=== PATIENT | male | born 1960 | race Caucasian/White ===

== ENCOUNTER 2020-09-23 13:55 | Inpatient (IN) | payer OTHER, SELFPAY ==
[2020-09-23] VITALS (25 sets, daily range): BP systolic 77–156; BP diastolic 67–129; PULSE 77–149; RESP 14–24; TEMP 36.1–36.9; O2SAT 90–98; BMI 27.6; BMI 31.4
--- NOTE | 2020-09-23 06:07 | RAD_ITS ---
STUDY: X-RAY - ABDOMEN/PELVIS REASON FOR EXAM: Male, 60 years old. Abdominal pain TECHNIQUE: Single AP view of the abdomen / pelvis. COMPARISON: None. FINDINGS: Normal visualized lung bases. There are mildly prominent loops of air-filled small bowel. There is no demonstrated free abdominal air. The visualized liver, spleen and kidneys are grossly normal in size and morphology. Normal soft tissue structures. Normal visualized osseous structures. RAD/Abd Decub and/or Erect(Portabl IMPRESSION: Mildly prominent loops of air-filled small bowel. Electronically Signed: Michael Rosen MD at 17:06 EST Tel , Service support ,
--- NOTE | 2020-09-23 14:42 | RAD_ITS ---
STUDY: X-RAY CHEST REASON FOR EXAM: Male, 60 years old. Cough TECHNIQUE: Single AP portable view of the chest. COMPARISON: None. FINDINGS: There are hazy airspace opacities in the bilateral upper lobes and right lung base. There is no demonstrated pleural abnormality. Normal size heart. Normal mediastinum and karlie. Normal visualized pulmonary arteries. Normal visualized aortic arch and descending thoracic aorta. Normal visualized thoracic spine. Normal visualized ribs, clavicles, and shoulders. There is no demonstrated abnormality of the visualized soft tissue structures of the upper abdomen. RAD/Chest 1 View (Portable) IMPRESSION: Hazy airspace opacities in the bilateral upper lobes and right lung base in keeping with pneumonia. Electronically Signed: Michael Rosen MD at 15:26 EST Tel , Service support ,
--- NOTE | 2020-09-23 14:42 | EKG12_ITS ---
Test Reason : TACHY Blood Pressure : / mmHG Vent. Rate : 152 BPM Atrial Rate : 170 BPM P-R Int : 000 ms QRS Dur : 082 ms QT Int : 288 ms P-R-T Axes : 000 053 266 degrees QTc Int : 457 ms Atrial fibrillation with rapid ventricular response Nonspecific ST and T wave abnormality Abnormal ECG Confirmed by LEANDRO BAHENA, ROBERTO ([id number]), desk editor LIAM BOWSER ([id number]) on 09/26/2020 10:58:24 A M Referred By: MARCUS Confirmed By:CLAUDIA REEVES MD
[2020-09-23 14:51] LABS: Absolute Lymphocyte Count 0.96 X10^3/uL (0.83-4.51); Absolute Neutrophil Count 7.2 X10^3/uL (2.0-7.7); Basophil# 0.03 X10^3/uL; Basophil% 0.3 % (0-1); Eosinophil# 0.02 X10^3/uL; Eosinophils% 0.2 % (0-5); Hematocrit 49.6 % (40-54); Hemoglobin 16.6 g/dL (13.0-16.5); Lymphocyte # 0.96 X10^3/ul (4.0); Lymphocyte % 10.8 % (19-41); Mean Corp Hgb Conc 33.5 g/dL (32-36); Mean Corpuscular Hgb 32.1 pg (27.0-32.0); Mean Corpuscular Volume 95.9 fL (80-94); Mean Platelet Vol. 11.7 fl (6.2-12.0); Monocyte# 0.66 X10^3/uL; Monocyte% 7.4 % (0-10); NRBC Flagged by Analyzer 0 % (0-5); Neutrophil # 7.23 X10^3/uL (2.7-7.7); Neutrophil % 81.1 % (47-70); Platelet Count 231 K/mm3 (150-450); RBC Distribution Width CV 12.9 % (11.6-14.6); RBC Distribution Width SD 45.2 fl (35.1-43.9); Red Blood Count 5.17 M/mm3 (4.6-6.2); White Blood Count 8.9 K/mm3 (4.4-11.0)
[2020-09-23 14:55] LABS: International Normalized Ratio 1.1; Prothrombin Time (Protime)PT. 13.8 SECONDS (11.7-14.9)
[2020-09-23 14:56] LABS: Partial Thromboplast Time 25.2 Seconds (24.1-36.2)
[2020-09-23] MEDS: 0.9% Normal Saline 1,000 ML 1000 ML IV (14:59)
[2020-09-23] MEDS: dilTIAZem 25 MG/5 ML Vial IV BOLUS (15:00)
[2020-09-23 15:02] LABS: AST(SGOT) 123 U/L (15-37); Alanine Aminotransfer ALT/SGPT 260 U/L (16-61); Albumin, Serum 3.5 g/dL (3.2-5.0); Alkaline Phosphatase 112 U/L (45-117); Anion Gap 7 (5-15); BUN 15 mg/dL (7-18); BUN/Creat Ratio 11.1 RATIO (10-20); Calcium,Total 8.9 mg/dL (8.5-10.1); Chloride 106 mmol/L (98-107); Creatinine, Serum 1.35 mg/dL (0.70-1.30); EST Glomerular Filtration Rate 58 mL/min (>60); Est Glom Filt Rate - Afr Amer 70 mL/min (>60); Estimated Creatinine Clearance 73.23 ml/min; Globulin 3.4 g/dL (2.2-4.2); Glucose 120 mg/dL (74-106); Potassium 4.6 mmol/L (3.5-5.1); Protein, Total 6.9 g/dL (6.4-8.2); Sodium Level 137 mmol/L (136-145)
--- NOTE | 2020-09-23 15:31 | HP.PCM_ITS ---
Problem List (1) Sepsis Status: Acute Qualifiers: Sepsis type: sepsis due to unspecified organism Sepsis acute organ dysfunction status: unspecified Qualified Code(s): A41.9 - Sepsis, unspecified organism (2) Elevated BP without diagnosis of hypertension Status: Acute (3) Elevated LFTs Status: Acute (4) Acute renal insufficiency Status: Acute (5) Atrial fibrillation with rapid ventricular response Status: Acute (6) Pneumonia Status: Acute Qualifiers: Pneumonia type: due to unspecified organism Laterality: bilateral Lung location: unspecified part of lung Qualified Code(s): J18.9 - Pneumonia, unspecified organism History of Present Illness Date of Admission: 09/23/20 Chief Complaint: Dyspnea, cough, recent URI sxs, now racing heart, fatigue. The patient is a 60 y/o M w/ denied medical history on no medications who presents to the [facility] ED on 09/23/20 with history of onset in late July generalized fatigue, malaise, frontal occasional headaches, body aches, cough, dyspnea as well as alteration to his sense of taste however he reports that his taste only changed following taking a Z-Benigno with noted virtual visit 09/13/2020 given his ongoing symptoms without improvement with PCP administration at that time of Z-Benigno with no improvement and immediate onset evening following dose taken earlier in the day of significantly racing heart and dyspnea, worse with exertion with elevated blood pressures prompting ED evaluation. His denies having any symptoms and has felt well. Patient is very active normally and has had no health issues. Work-up in the ED included T 97, heart rate initially 77 however increased to 140, BP 156/117, respiratory rate 20, 97% on room air, CBC with WBC 8.9, hemoglobin 16.6, platelet 231 without marked shift, unremarkable coags, CMP with BUN/creatinine 15/1.35, glucose 120, total bilirubin 1.80, AST/ALT 123/260, alk phos 112, troponin less than 0.015, rapid Covid antigen negative, chest x-ray with consolidative BL UL infiltrates, abdominal plain film with mildly prominent loops of air-filled small bowel, EKG with atrial fibrillation with RVR. In the ED patient administered normal saline and Cardizem 25 mg IV bolus x1. In the ED patient also given Levaquin. Covid PCR pending upon evaluation of patient. Past Medical History Allergies No Known Allergies Allergy (Verified 09/23/20 14:01) Home Medications: Ambulatory Orders Medication Instructions Recorded Trazodone HCl 50 mg PO QHS 09/23/20 Surgical History: no surgical history Psychiatric History: No pertinent psych hx Lives: Spouse/ Significant Other Smoking Status: Former smoker - Patient smokes approximately 1 pack/day cigarette tobacco usage from age [age]. Tobacco Use: Non-smoker Alcohol: Occasional Drugs: None - *Family History Maternal History Items: Hypertension, - - Mother with a history of DVTs. Paternal History Items: Hypertension Review of Systems Constitutional: Reports: Anorexia, Malaise, Weakness, Fatigue. Denies: Chills, Fever, Weight Change HEENT: Reports: Head Aches, - - Altered taste.. Denies: Sinus Congestion, Sinus Drainage Cardiovascular: Reports: Chest Pain. Denies: Palpitations Respiratory: Reports: Cough, Pleuritic Pain, Shortness of Breath, Shortness of breath upon exertion. Denies: Shortness of breath at rest, Sputum production, Wheezing Gastrointestinal: Reports: Abdominal Pain, Diarrhea, Nausea, Vomiting Genitourinary: Denies: Dysuria Musculoskeletal: Reports: Joint Pain, Muscle pain. Denies: Joint Tenderness Skin: Denies: Rash, Wounds Neurological: Denies: Numbness, Tingling, Focal weakness Psychiatric: Denies: Anxiety, Depression, Homicidal Ideations, Suicidal Ideations Hematologic/ Lymphatic: Denies: Easy Bruising, Easy Bleeding VTE Information - Inpt Only VTE Present on Admission: No VTE Mechan Device Prophylaxis: SCD's VTE Pharm Prophylaxis ordered?: Yes Patient Problems: Active and Suspected Problems Atrial fibrillation with rapid ventricular response (Acute) Pneumonia (Acute) Sepsis (Acute) Elevated BP without diagnosis of hypertension (Acute) Elevated LFTs (Acute) Acute renal insufficiency (Acute) Subjective: Patient seated upright in the ED bed, fatigued and ill-appearing, no acute distress noted. Objective: Physical Examination: General: awake, alert, oriented x 3 and cooperative, seated upright in the ED bed in no apparent distress, fatigued and ill-appearing. Skin: normal color, turgor, no icterus, cyanosis. HEENT: AT/NC, EOMI, PERRLA, dry MM, no carotid bruits or JVD noted. Lungs: Diminished breath sounds, greater bases, moderate effort, no rales, ronchi or wheezing. Heart: Irregular irregular; no gallop, rub audible. Abdomen: soft, NTTP, mildly distended, moderately hypoactive BS, no HSM. Extremities: no cyanosis, clubbing, or edema. Neurological: patient awake, alert, oriented as noted; cognitive function intact; pupils equally reactive to light and accomodation; cranial nerves II-XII grossly normal, moving all 4 extremities, no focal deficits, strength moderately to severely global decrease secondary to acute presentation. Psychiatric: affect appears fatigued, ill-appearing, no acute evidence of depressive or anxiety feelings. - Physical Exam Vitals/I&O's: Vital Signs Temp Pulse Resp BP Pulse Ox 97 F L 140 H 20 H 145/111 H 95 09/23/20 13:57 09/23/20 15:00 09/23/20 15:00 09/23/20 15:00 09/23/20 15:00 Oxygen Delivery Method Room Air Weight: 227 lb 1.218 oz Body Mass Index (BMI) 27.6 Microbiology Past 72 Hours 09/23/20 14:48 Mucosa - Nose SARS-CoV-2 Antigen (Rapid) - Final Laboratory Results 09/23/20 14:13: WBC 8.9, RBC 5.17, Hgb 16.6 H, Hct 49.6, MCV 95.9 H, MCH 32.1 H, MCHC 33.5, RDW Std Deviation 45.2 H, RDW Coeff of Thai 12.9, Plt Count 231, MPV 11.7, Immature Gran % (Auto) 0.200, Neut % (Auto) 81.1 H, Lymph % (Auto) 10.8 L, Petroleum % (Auto) 7.4, Eos % (Auto) 0.2, Baso % (Auto) 0.3, Absolute Neuts (auto) 7.2, Absolute Lymphs (auto) 0.96, Nucleated RBC % 0 09/23/20 14:13: PT 13.8, INR 1.1, APTT 25.2 09/23/20 14:13: Sodium 137, Potassium 4.6, Chloride 106, Carbon Dioxide 24.0, Anion Gap 7, BUN 15, Creatinine 1.35 H, Estim Creat Clear Calc 73.23, Est GFR (MDRD) Af Amer 70, Est GFR (MDRD) Non-Af 58 L, BUN/Creatinine Ratio 11.1, Glucose 120 H, Calcium 8.9, Total Bilirubin 1.80 H, AST 123 H, ALT 260 H, Alkaline Phosphatase 112, Troponin I < 0.015, Total Protein 6.9, Albumin 3.5, Globulin 3.4, Albumin/Globulin Ratio 1.0 Current Medications Sodium Chloride () 1,000 mls @ 1,000 mls/hr IV .Q1H ONE Stop: 09/23/20 15:41 Last Admin: 09/23/20 14:59 Dose: 1,000 mls/hr Documented by: Levofloxacin (Levaquin Iv) 750 mg in 150 mls @ 100 mls/hr IV X1 ONE Stop: 09/23/20 16:58 Assessment/Plan All Active Problems Atrial fibrillation with rapid ventricular response (Acute) Pneumonia (Acute) Sepsis (Acute) Elevated BP without diagnosis of hypertension (Acute) Elevated LFTs (Acute) Acute renal insufficiency (Acute) The patient is a 60 y/o M w/ denied medical history on no medications who presents to the [facility] ED on 09/23/20 with history of onset in late July generalized fatigue, malaise, frontal occasional headaches, body aches, cough, dyspnea as well as alteration to his sense of taste however he reports that his taste only changed following taking a Z-Benigno with noted virtual visit 09/13/2020 given his ongoing symptoms without improvement with PCP administration at that time of Z-Benigno with no improvement and immediate onset evening following dose taken earlier in the day of significantly racing heart and dyspnea, worse with exertion with elevated blood pressures prompting ED evaluation. 1. New onset, Paroxsymal atrial fibrillation: EKG in ED w/ atrial fibrillation w/ RVR. Patient administered cardizem bolus in ED. Will admit to PCU, maintain on telemetry, obtain cardiac enzyme serial set, obtain magnesium level, obtain ECHO, obtain TSH level. Given presentation history will also obtain D-dimer and if elevated will obtain CTPA. Until further evaluation and assessment will initiate therapeutic lovenox. Will continue on cardizem drip with plan for oral transition after 24 hours if appropriate. 2. Acute Sepsis secondary to (Suspect Prior Acute Viral Syndrome COVID-19 (July) now with Superimposed) Community Acquired BL Pneumonia: Will maintain on oxygen with wean as tolerated to home oxygen supplementation, continue ATC duonebs, PRN albuterol, maintained on IV Levaquin, HOB, IS parameters w/ pending sputum cultures and urine antigens. PCR COVID pending per ED and as long as negative continue planned PCU admission. Given presentation, especially with PAF new onset healthy previously will obtain COVID panel work-up including D-dimer, procalcitonin, CRP, CPK, Ferritin, LDH, trop and BNP. If D-dimer elevated will obtain CTPA additionally. Given atypical presentation and ongoing symptoms will request ID input also. 3. Elevated BP without hypertensive diagnosis: Given presentation as noted usage of Cardizem and will necessitate oral regimen addition, continue to m onitor blood pressures and may need additional regimen if appropriate, given IV hydralazine. 4. Acute kidney injury versus Acute Renal Insufficiency versus CKD stage III: Secondary to acute presentation #1, #2. Admission BUN/Cr 15/1.35, unclear prior baseline but no reported health history is including no renal disease previously, judiciously hydrating given acute presentation, repeat CMP in AM. 5. Elevated bilirubin, AST/ALT: Possibly related to #2 especially previously Covid positive now with superimposed bacterial pneumonia, will obtain liver/gallbladder ultrasound, repeat CMP in AM. 6. DVT prophylaxis: SCDs, Lovenox. 7. CODE status: Patient and his was present do not have healthcare power of civil attorney nor living will set up. Noted the if they are interested they may request information from case management/social work. Discussed CODE status at length including difference between FULL code, DNR-CCA and DNR-CC status. Following discussions about the differences in these status, requested Full Code status. Advanced Care Planning Face to Face Time: 16 minutes. Inpatient E&M: 84303 Init Hosp L3 Procedures: 47000 Advncd Care Plan 30 Min
[2020-09-23] MEDS: levoFLOXacin IV 750 MG/150 ML BAG 100 MG IV (16:31)
--- NOTE | 2020-09-23 16:40 | ED.VISSUMM ---
- ER Visit Summary Date of Service: 09/23/20 Chief Complaint: Shortness of breath and palpitations History of Present Illness: The patient is a 60 M who presents with shortness of breath that has been constant for the past 6 weeks. Patient states he has been having some increasing fatigue. Patient admits to a cough. Patient denies any sputum. Patient denies any fevers or chills. Patient does admit to some chest pain and palpitations that began 10 days ago. Patient was given a prescription for Zithromax at 10 days ago and he took that from 09/13/2020 through 09/17/2020. Patient states this did not improve any of his symptoms. Patient states he noted his heart beating faster after taking this. Patient also admits to some abdominal pain and bloating. Patient admits to some nausea and vomiting. Patient states he has been unable to keep anything down. Patient denies any past medical history. Physical Examination: Vital signs are stable except for an elevated blood pressure 156/117. Patient is afebrile. Patient is in no acute distress. Oral mucosa is pink and moist. Neck is supple. Trachea is midline. There is no JVD noted. Heart was irregularly irregular and tachycardic. Lungs are clear and equal bilaterally. Abdomen is soft. Bowel sounds are normal. There is no tenderness. There is no rebound or guarding noted. Skin is warm dry. Cranial nerves II through XII are intact. There are no focal motor or sensory deficits noted. Extremities are intact. There is no calf tenderness or edema. Test Results: EKG was obtained. On my interpretation, there is atrial fibrillation with rapid ventricular response. Rate is 152. QRS and QTc intervals are within normal limits. Archer is normal. There are nonspecific ST-T wave changes noted. There are no prior EKGs available for comparison. Portable chest x-ray was obtained. There is 1 view. On my interpretation, there are bilateral upper lobe infiltrates. There is no cardiomegaly. Bony thorax is normal. There is no pneumothorax. Radiologist also interpreted the x-rays in degrees. Abdominal x-rays were obtained. There are 5 views. On my interpretation, there is nonspecific bowel gas pattern. There is no evidence of bowel obstruction. CBC was essentially within normal limits. Comprehensive metabolic profile showed a slightly increased creatinine of 1.35. Total bilirubin was 1.8, ALT was 260, and AST was 123. PT with INR and PTT were normal. Troponin was normal. Emergency Department Course and Treatment: Patient was given a dose of Cardizem here. Patient's heart rate improved somewhat. It would go down into the 1 teens and then back up into the 130s on the monitor. Patient was given a dose of Levaquin here. Patient was advised of his results. Case was discussed with the hospitalist. He recommended obtaining a COVID-19 PCR test. This was ordered. She will admit the patient to her service. Patient understood and was agreeable with the plan. All questions were answered. Disposition: Admit to hospital Impression: 1. Atrial fibrillation with rapid ventricular response 2. Pneumonia This note was generated with [employer] dictation software. It may contain incorrect words, spelling, and punctuation that were not noted in review of the chart prior to signing ED Disposition - Plan for ED Patient: Disposition: Acute Care Hospital [facility] Diagnosis: Atrial fibrillation with rapid ventricular response, Pneumonia
[2020-09-23 19:11] LABS: D-Dimer Quantitative (DVT/PE) 1.85 FEU/ug/m (0.27-0.49)
--- NOTE | 2020-09-23 19:14 | CT_ITS ---
STUDY: CTA CHEST REASON FOR EXAM: Male, 60 years old. Suspected PE. RADIATION DOSAGE (If Supplied By Facility): CTDIvol = ( 18.575 ) mGy, DLP = ( 673.74 ) mGycm TECHNIQUE: The examination was performed with the intravenous administration of IV 100mL [id number]-370. Post-processing of the angiographic images was performed, with multiplanar reformation and 3D reconstruction. Individualized dose optimization techniques were used for this CT. COMPARISON: Chest, 09/23/2020. FINDINGS: Normal enhancement of the main pulmonary artery and right and left pulmonary arteries. Normal enhancement of the bilateral peripheral pulmonary arteries. There is no demonstrated pulmonary embolism. Normal thoracic aorta and visualized great vessels. There is no demonstrated aortic dissection. Normal heart and pericardium. There are calcifications of the coronary arteries. There is diffuse subcentimeter nonspecific mediastinal lymphadenopathy. Normal hilar regions. Normal visualized trachea and bronchi. The lungs are well expanded. There is patchy groundglass infiltrates centrally in the region of the upper lobes just above the karlie. Left lungs are clear. There are small bilateral pleural effusions with subsegmental atelectasis. Normal chest wall structures. There are degenerative changes of thoracic spine. Normal visualized upper abdomen. CT/CTA Chest W/WO Contrast IMPRESSION: 1. No evidence of pulmonary embolus. 2. No aortic dissection or aneurysm. 3. Bilateral upper lobe perihilar groundglass infiltrates suggesting pneumonia. 4. Small bilateral pleural effusions with subsegmental atelectasis. Electronically Signed: Alexis Trivedi DO at 20:12 EST Tel [phone], Service support ,
--- NOTE | 2020-09-23 19:53 | ECHOD_ITS ---
Reason For Study: PAF Procedure This was a 2D Doppler, Color Flow transthoracic echocardiogram. Exam performed portable in patient room. Left Ventricle Normal LV size. The estimated ejection fraction is 20-25 %. Stage 1 diastolic dysfunction. There is severe global hypokinesis of the left ventricle. Right Ventricle Normal RV size. Normal systolic function. Atria The left atrium is moderately enlarged. Normal right atrium. No doppler evidence for ASD. Mitral Valve There is no mitral valve stenosis. Moderately severe (3+) mitral valve insufficiency. Tricuspid Valve There is no tricuspid stenosis. Mild tricuspid valve insufficiency. Pulmonary artery systolic pressure is 30 mmHg. Aortic Valve Trisinus/trileaflet aortic valve. There is no aortic stenosis. No aortic valve insufficiency. Pulmonic Valve There is no pulmonic valvular stenosis. Pulmonic valve insufficiency. Great Vessels Normal aortic root. The inferior vena cava is dilated. Pericardium/Pleural No pericardial effusion. MMode/2D Measurements & Calculations LVIDd: 5.6 cm IVSd: 1.1 cm Ao root diam: 3.7 cm LVIDs: 4.6 cm LVPWd: 0.97 cm RVDd: 5.2 cm FS: 17.6 % LAV(MOD-bp): 99.6 ml LA A4 area: 27.1 cm2 LA dimension(2D): 5.0 cm LAV(MOD-bp) Indexed: 40.5 ml/m2 LAV(MOD-sp2): 106.0 ml LAV(MOD-sp4): 90.0 ml RA A4 area: 21.5 cm2 Time Measurements MV dec time: 0.17 sec Doppler Measurements & Calculations MV E max ranulfo: 103.7 cm/sec Lat Peak E' Ranulfo: 10.8 cm/sec Med Peak E' Ranulfo: 7.5 cm/sec E/E' lat: 9.6 E/E' med: 13.8 Ao V2 max: 63.0 cm/sec LV V1 max: 52.7 cm/sec TR max ranulfo: 231.9 cm/sec Ao max P.6 mmHg LV V1 max P.1 mmHg TR max P.5 mmHg Interpretation Summary The estimated ejection fraction is 20-25 %. Stage 1 diastolic dysfunction. There is severe global hypokinesis of the left ventricle. Moderately severe (3+) mitral valve insufficiency. Mild tricuspid valve insufficiency. Ordering Physician: Mitali Guillaume Referring Physician: CUCO CASH Performed By: Cindi Ennis, TANISHA, RVT
[2020-09-23] MEDS: Metoprolol Tartrate 5 MG/5 ML Vial IV (20:32)
[2020-09-23] MEDS: 0.9% Normal Saline 1,000 ML 100 ML IV (20:33)
[2020-09-23] MEDS: 0.9% Saline Lock 10 ML Syringe IV ×2 (20:33→23:44)
[2020-09-23] MEDS: Enoxaparin 100 MG/ML Syringe SC (20:48)
[2020-09-23 21:11] LABS: BNP,B-Type NATRIURETIC PEPTIDE 687.8 pg/mL (0-100)
[2020-09-23 21:20] LABS: Procalcitonin 0.04 ng/mL (0.00-0.09)
[2020-09-23 21:24] LABS: Ferritin 57 ng/mL (26-388); LDH 223 U/L (87-241); T4 Free Direct 1.53 ng/dL (0.76-1.46); Thyroid Stim Hormone (TSH) 2.55 uIU/mL (0.358-3.74)
[2020-09-23] MEDS: Amiodarone 360 MG in Dextrose 5% Viaflo Bag 192.8 ML 33.3 MG CONT INF (21:45)
[2020-09-23] MEDS: Ondansetron 4 MG/2 ML Vial IV (22:07)
[2020-09-23] MEDS: Famotidine 20 MG Tablet PO (22:08)
[2020-09-23] MEDS: proCHLORPERazine 10 MG/2 ML Vial 5 MG IV (23:44)
[2020-09-24] VITALS (28 sets, daily range): BP systolic 91–141; BP diastolic 71–109; PULSE 87–120; RESP 13–28; TEMP 36.4–36.9; O2SAT 92–98
[2020-09-24] MEDS: traZODone 50 MG Tablet PO ×2 (00:30→23:13)
[2020-09-24] MEDS: Lactated Ringers 500 ML 999 ML IV (00:39)
[2020-09-24 03:04] LABS: Absolute Neutrophil Count 9.5 X10^3/uL (2.0-7.7); Basophil# 0.03 X10^3/uL; Basophil% 0.3 % (0-1); Eosinophil# 0.01 X10^3/uL; Eosinophils% 0.1 % (0-5); Hematocrit 45.1 % (40-54); Hemoglobin 14.9 g/dL (13.0-16.5); Lymphocyte % 6.3 % (19-41); Mean Corpuscular Volume 96.8 fL (80-94); Mean Platelet Vol. 11.2 fl (6.2-12.0); Monocyte# 0.82 X10^3/uL; Monocyte% 7.4 % (0-10); NRBC Flagged by Analyzer 0 % (0-5); Neutrophil % 85.3 % (47-70); Platelet Count 184 K/mm3 (150-450); RBC Distribution Width SD 46.3 fl (35.1-43.9); Red Blood Count 4.66 M/mm3 (4.6-6.2); White Blood Count 11.1 K/mm3 (4.4-11.0)
[2020-09-24] MEDS: Amiodarone 360 MG in Dextrose 5% Viaflo Bag 192.8 ML 16.7 MG CONT INF ×2 (03:41→17:00)
[2020-09-24 04:56] LABS: AST(SGOT) 121 U/L (15-37); Alanine Aminotransfer ALT/SGPT 234 U/L (16-61); Albumin, Serum 2.8 g/dL (3.2-5.0); Alkaline Phosphatase 92 U/L (45-117); Anion Gap 10 (5-15); BUN 18 mg/dL (7-18); BUN/Creat Ratio 12.3 RATIO (10-20); Calcium,Total 8.5 mg/dL (8.5-10.1); Chloride 107 mmol/L (98-107); Cholesterol 118 mg/dL (200); Creatinine, Serum 1.46 mg/dL (0.70-1.30); EST Glomerular Filtration Rate 53 mL/min (>60); Est Glom Filt Rate - Afr Amer 64 mL/min (>60); Estimated Creatinine Clearance 67.71 ml/min; Globulin 2.9 g/dL (2.2-4.2); Glucose 130 mg/dL (74-106); High Density Lipoprotein 35 mg/dL; Potassium 4.6 mmol/L (3.5-5.1); Protein, Total 5.7 g/dL (6.4-8.2); Sodium Level 137 mmol/L (136-145); Triglycerides 56 mg/dL; Very Low Density Lipoprotein 11 mg/dL (5-40)
--- NOTE | 2020-09-24 05:55 | EKG12_ITS ---
Test Reason : Blood Pressure : / mmHG Vent. Rate : 071 BPM Atrial Rate : 256 BPM P-R Int : 000 ms QRS Dur : 082 ms QT Int : 444 ms P-R-T Axes : 000 029 183 degrees QTc Int : 482 ms Atrial flutter with variable A-V block ST & T wave abnormality, consider inferior ischemia ST & T wave abnormality, consider anterolateral ischemia Prolonged QT Abnormal ECG When compared with ECG of 26-SEP-2020 05:50, MANUAL COMPARISON REQUIRED, DATA IS UNCONFIRMED Confirmed by KATRIN BAHENA, TRISHA ([id number]), writer editor LIAM BOWSER ([id number]) on 09/28/2020 10:21:20 AM Referred By: KATRIN Confirmed By:TRISHA WILKES MD
[2020-09-24] MEDS: 0.9% Normal Saline 1,000 ML 100 ML IV (06:22)
[2020-09-24] MEDS: 0.9% Saline Lock 10 ML Syringe IV ×2 (09:17→17:49)
[2020-09-24] MEDS: Famotidine 20 MG Tablet PO ×2 (09:17→23:12)
[2020-09-24] MEDS: levoFLOXacin IV 750 MG/150 ML BAG 100 MG IV (09:17)
[2020-09-24] MEDS: Enoxaparin 100 MG/ML Syringe SC ×2 (09:17→23:13)
--- NOTE | 2020-09-24 13:42 | PCM.CONS.C ---
Reason for Consult Date of Consultation: 09/24/20 Reason for Consultation: Atrial fibrillation History of Present Illness: The patient is a 60 year old M [who has been having respiratory symptoms since late July of this year. After about a month of having symptoms patient finally got in touch with his primary care physician for a televisit. He was prescribed azithromycin. Around the time he noticed that his symptoms were getting worse and he also started noticing palpitations. He then went to see his primary care physician again and was found to be in A. fib with RVR. He was admitted to the PCU and is currently on amiodarone which has brought his heart rate down to the 110 to 120 range. He appears to be in slow a flutter with 2-1 conduction. He did have elevated BNP, D-dimer and CRP. He says that when he falls asleep he does wake up suddenly with what he describes as a panic attack. He could be having paroxysmal nocturnal dyspnea. Review of systems: All systems reviewed. All else is negative except that in HPI] Past Medical History Allergies/Adverse Reactions: Allergies azithromycin [From Zithromax Z-Benigno] Adverse Reaction (Verified 09/23/20 20:17) palpitations/stomach bloating Home Medications: Ambulatory Orders Medication Instructions Recorded Trazodone HCl 50 mg PO QHS 09/23/20 Surgical History: no surgical history Psychiatric History: No pertinent psych hx - *Family History Maternal History Items: Hypertension, - - Mother with a history of DVTs. Paternal History Items: Hypertension Lives: Spouse/ Significant Other Smoking Status: Former smoker Tobacco Use: Non-smoker Alcohol: Occasional Drugs: None Objective: Vital Signs Temp Pulse Resp BP Pulse Ox 98.4 F 116 H 16 108/79 95 09/24/20 12:00 09/24/20 12:00 09/24/20 12:00 09/24/20 12:00 09/24/20 12:00 Oxygen Flow Rate (L/min) 4 Oxygen Delivery Method Room Air Weight: 256 lb 6.362 oz Body Mass Index (BMI) 31.4 Intake and Output for Last 24 Hours 09/22/20 09/23/20 09/24/20 23:59 23:59 23:59 Intake Total 1357.13 / 1637.93 2462.34 / 2462.34 Output Total 1075 / 1075 Balance 1357.13 / 1312.93 1387.34 / 1387.34 General: Awake, Alert, Oriented x 3 HEENT: Atraumatic Oral: Moist Mucosa Neck: Supple Lungs: Diminished Right Base, Rales - Left Base Cardiovascular: Normal S1, Normal S2 Extremities: No edema Skin: No Rashes Psych/Mental Status: Appropriate 09/23/20 14:13: WBC 8.9, RBC 5.17, Hgb 16.6 H, Hct 49.6, MCV 95.9 H, MCH 32.1 H, MCHC 33.5, Plt Count 231, MPV 11.7, Immature Gran % (Auto) 0.200, Neut % (Auto) 81.1 H, Lymph % (Auto) 10.8 L, [place] % (Auto) 7.4, Eos % (Auto) 0.2, Baso % (Auto) 0.3, Absolute Neuts (auto) 7.2, Nucleated RBC % 0 09/23/20 14:13: PT 13.8, INR 1.1, APTT 25.2 09/23/20 14:13: Sodium 137, Potassium 4.6, Chloride 106, Carbon Dioxide 24.0, Anion Gap 7, BUN 15, Creatinine 1.35 H, Est GFR (MDRD) Af Amer 70, Est GFR (MDRD) Non-Af 58 L, BUN/Creatinine Ratio 11.1, Glucose 120 H, Calcium 8.9, Total Bilirubin 1.80 H, Troponin I < 0.015 09/23/20 14:13: B-Natriuretic Peptide 687.8 H 09/23/20 20:39: Magnesium 2.0, Ferritin 57, Troponin I 0.016 09/23/20 22:30: Troponin I < 0.015 09/23/20 : D-Dimer Quant (PE/DVT) 1.85 H* 09/24/20 02:55: WBC 11.1 H, RBC 4.66, Hgb 14.9, Hct 45.1, MCV 96.8 H, MCH 32.0, MCHC 33.0, Plt Count 184, MPV 11.2, Immature Gran % (Auto) 0.600, Neut % (Auto) 85.3 H, Lymph % (Auto) 6.3 L, [place] % (Auto) 7.4, Eos % (Auto) 0.1, Baso % (Auto) 0.3, Absolute Neuts (auto) 9.5 H, Nucleated RBC % 0 09/24/20 02:55: Sodium 137, Potassium 4.6, Chloride 107, Carbon Dioxide 20.0 L, Anion Gap 10, BUN 18, Creatinine 1.46 H, Est GFR (MDRD) Af Amer 64, Est GFR (MDRD) Non-Af 53 L, BUN/Creatinine Ratio 12.3, Glucose 130 H, Calcium 8.5, Total Bilirubin 2.60 H, Triglycerides 56, Cholesterol 118, LDL Cholesterol 72, VLDL Cholesterol 11, HDL Cholesterol 35 L 09/24/20 02:55: Troponin I 0.025 Rhythm: EKG: ECHO: Stress Test: Cardiac Cath: PCI: CT Surgery: Holter monitor: EPS: PPM: CXR: Chest CT Scan: Assessment/Plan 1. Atrial fibrillation: Patient's blood pressure is on the low side. I think will be reasonable to continue amiodarone IV and then switch to p.o. amiodarone at 200 mg p.o. twice daily. As an outpatient we can consider switching to a different medication. Patient appears to have some kind of systemic illness as well resulting in high CRP, D-dimer etc. Alternately he could have had A. fib with RVR that he did not recognize for a while and that has led to LV dysfunction and heart failure resulting in high BNP as well. He does have JVD and symptoms suggestive of PND. Will be reasonable to give him Lasix IV for 1 or 2 days to see if this helps him. 2D echo has been ordered as well. Patient will likely need to be on Eliquis. If he does have severe LV dysfunction then he may need heart cath and so we will make a decision regarding Eliquis based on his echo findings.
--- NOTE | 2020-09-24 15:28 | PN_ITS ---
Patient Problems: Active and Suspected Problems Atrial fibrillation with rapid ventricular response (Acute) Pneumonia (Acute) Sepsis (Acute) Elevated BP without diagnosis of hypertension (Acute) Elevated LFTs (Acute) Acute renal insufficiency (Acute) Subjective: She was seen and examined today, I reviewed his medical record and his telemetry, patient remains in atrial fibrillation at this time, his rate this morning was in the 120s, he appears asymptomatic with this, I discussed his care with cardiology today and at this time his echocardiogram is pending. Patient's CTA of his chest does not show evidence of pulmonary emboli, there are some patchy infiltrates in the upper lobes-I am not concerned at this time for pneumonia and I have decided to stop the patient's antibiotic. He is not running a temperature, his white count is slightly elevated today however and I will monitor that. Patient is currently on Lovenox, he will more than likely be transition to Eliquis but depending on the results of his echocardiogram, he may need a cardiac catheterization on 09/26/2020 and in that case patient will continue Lovenox. Cardiology advised giving the patient 1 dose of Lasix this evening and another dose tomorrow morning. - Physical Exam Vitals/I&O's: Vital Signs Temp Pulse Resp BP Pulse Ox 98.4 F 117 H 16 111/82 H 95 09/24/20 12:00 09/24/20 15:00 09/24/20 14:00 09/24/20 14:00 09/24/20 14:00 Oxygen Flow Rate (L/min) 4 Oxygen Delivery Method Room Air Weight: 116.3 kg Body Mass Index (BMI) 31.4 Intake and Output for Last 24 Hours 09/22/20 09/23/20 09/24/20 23:59 23:59 23:59 Intake Total 1357.13 / 1637.93 2495.74 / 2495.74 Output Total 1075 / 1075 Balance 1357.13 / 1312.93 1420.74 / 1420.74 General: Alert, Oriented x3, Cooperative, No apparent distress, Well developed, Well nourished HEENT: Atraumatic, PERRLA, EOMI, Normocephalic Oral: Moist Mucosa Neck: Supple, No JVD, Trachea Midline, Thyroid Normal Size and Texture Lungs: Clear to auscultation, Normal air movement, No rhonchi, No wheeze, No rales Cardiovascular: Normal S1, Normal S2, No murmurs, PMI Normal, Irregular Rate, No rub noted, No Gallop Abdomen: Bowel Sounds Present, Soft, Non Tender, Non-Distended Extremities: No clubbing, No cyanosis, No edema, Capillary Refill Less than 3 Seconds Skin: No rashes, No breakdown Musculoskeletal: No Tenderness to Palpation of Joints or Extremities Neurological: Cranial nerves II-XII grossly intact, Neuro grossly intact, Motor Exam 5/5 strength throughout, Sensory exam intact to light touch and pain Psych/Mental Status: Normal Affect, Appropriate, Alert and oriented to time, place, person, mood and affect Microbiology Past 72 Hours 09/23/20 23:55 Mucosa - Nasopharyngeal Respiratory Panel (PCR) - Final 09/23/20 21:30 Urine, Clean Catch Legionella Antigen - Final 09/23/20 21:30 Urine, Clean Catch Streptococcus pneumoniae Antigen (M - Final 09/23/20 14:48 Mucosa - Nose SARS-CoV-2 Antigen (Rapid) - Final Laboratory Results 09/23/20 14:13: B-Natriuretic Peptide 687.8 H 09/23/20 15:55: COVID-19 (PIERCE) Not Detected 09/23/20 20:39: Magnesium 2.0, Ferritin 57, Lactate Dehydrogenase 223, Troponin I 0.016, C-React Prot Ext Range 15.40 H, TSH 2.55, Free T4 1.53 H 09/23/20 20:39: Procalcitonin 0.04 09/23/20 22:30: Troponin I < 0.015 09/23/20 : D-Dimer Quant (PE/DVT) 1.85 H* 09/24/20 02:55: WBC 11.1 H, RBC 4.66, Hgb 14.9, Hct 45.1, MCV 96.8 H, MCH 32.0, MCHC 33.0, RDW Std Deviation 46.3 H, RDW Coeff of Thai 13.0, Plt Count 184, MPV 11.2, Immature Gran % (Auto) 0.600, Neut % (Auto) 85.3 H, Lymph % (Auto) 6.3 L, [place] % (Auto) 7.4, Eos % (Auto) 0.1, Baso % (Auto) 0.3, Absolute Neuts (auto) 9.5 H, Absolute Lymphs (auto) 0.70 L, Nucleated RBC % 0 09/24/20 02:55: Sodium 137, Potassium 4.6, Chloride 107, Carbon Dioxide 20.0 L, Anion Gap 10, BUN 18, Creatinine 1.46 H, Estim Creat Clear Calc 67.71, Est GFR (MDRD) Af Amer 64, Est GFR (MDRD) Non-Af 53 L, BUN/Creatinine Ratio 12.3, Glucose 130 H, Calcium 8.5, Total Bilirubin 2.60 H, AST 121 H, ALT 234 H, Alkaline Phosphatase 92, Total Protein 5.7 L, Albumin 2.8 L, Globulin 2.9, Albumin/Globulin Ratio 1.0, Triglycerides 56, Cholesterol 118, LDL Cholesterol 72, VLDL Cholesterol 11, HDL Cholesterol 35 L 09/24/20 02:55: Troponin I 0.025 Current Medications Acetaminophen (Acetaminophen 325 Mg Tablet) 650 mg PO Q6H PRN PRN PRN Reason: Pain Score 1-10/Temp > 100.7 F Al Hydroxide/Mg Hydroxide (Mag Hydrox/Al Hydrox/Simeth 30 Ml Udc) 30 ml PO Q6H PRN PRN PRN Reason: Gastric Burning Albuterol Sulfate (Albuterol 2.5 Mg/3 Ml Vial.Neb.) 2.5 mg INHALATION Q2H PRN PRN PRN Reason: Dyspnea, wheezing Amiodarone HCl (Amiodarone 200 Mg Tablet) 200 mg PO BID [facility] Enoxaparin Sodium (Enoxaparin 100 Mg/Ml Syringe) 100 mg 1 mg/kg (100 mg) SC Q12 [facility] Last Admin: 09/24/20 09:17 Dose: 100 mg Documented by: Famotidine (Famotidine 20 Mg Tablet) 20 mg PO BID [facility] Last Admin: 09/24/20 09:17 Dose: 20 mg Documented by: Furosemide (Furosemide 40 Mg/4 Ml Vial) 40 mg IV X1 ONE Stop: 09/24/20 18:01 Guaifenesin (Guaifenesin 10 Ml Udc (200mg/10ml)) 20 ml PO Q4H PRN PRN PRN Reason: COUGH Amiodarone HCl 360 mg/ (Dextrose) 200 mls @ 16.667 mls/hr CONT INF .Q12H [facility] Stop: 09/24/20 21:29 Last Infusion: 09/24/20 14:00 Dose: 0.5 mg/min, 16.7 mls/hr Documented by: Magnesium Hydroxide (Magnesium Hydroxide 30 Ml Udc) 30 ml PO DAILY PRN PRN PRN Reason: Constipation Melatonin (Melatonin 3 Mg Tablet) 3 mg PO QHS PRN PRN PRN Reason: INSOMNIA Morphine Sulfate (Morphine 2 Mg/Ml Syringe) 2 mg IV Q3H PRN PRN PRN Reason: Pain Score 6-10 Ondansetron HCl (Ondansetron 4 Mg/2 Ml Vial) 4 mg IV Q8H PRN PRN PRN Reason: NAUSEA/VOMITING Last Admin: 09/23/20 22:07 Dose: 4 mg Documented by: Oxycodone HCl (Oxycodone 5 Mg Tablet) 5 mg PO Q4H PRN PRN PRN Reason: Pain Score 4-5 Sodium Chloride (0.9% Saline Lock 10 Ml Syringe) 10 - 40 ml IV UD PRN PRN Reason: SALINE FLUSH Last Admin: 09/24/20 09:17 Dose: 10 ml Documented by: Throat Lozenges (Benzocaine/Menthol 1 Lozenge) 1 lozenge MUCOUS MEM Q2H PRN PRN PRN Reason: SORE THROAT Trazodone HCl (Trazodone 50 Mg Tablet) 50 mg PO QHS [facility] Last Admin: 09/24/20 00:30 Dose: 50 mg Documented by: Medical Necessity - Tobacco Use Smoking Status: Former smoker Tobacco Use: Non-smoker Assessment/Plan All Active Problems Atrial fibrillation with rapid ventricular response (Acute) Pneumonia (Acute) Sepsis (Acute) Elevated BP without diagnosis of hypertension (Acute) Elevated LFTs (Acute) Acute renal insufficiency (Acute) #1 new onset atrial fibrillation with rapid ventricular response-currently patient is on IV amiodarone, cardiology intimated to me that they would like to change the patient to a beta-beena and stop the amiodarone. #2 acute congestive heart failure-new diagnosis-type unknown at this time, again I think it is unlikely the patient has a community-acquired pneumonia, I have stopped his Levaquin, he will receive a dose of Lasix tonight. #3 elevated bilirubin-etiology unclear, patient had some dilation of his hepatic ducts on ultrasound, there was some thickening of the gallbladder without evidence of gallstones. I have decided to repeat the patient's labs tomorrow. Patient's common bile duct is not dilated. #4 stage III chronic kidney disease-etiology unclear, labs will be monitored. Inpatient E&M: 47433 Subs Hosp L2
--- NOTE | 2020-09-24 17:20 | CM.UR ---
RN CM Assessment Introduced role of RN CM to patient.? , Ruby, at bedside and included in discussion. Patient is alert, oriented and able?to participate in RN CM Assessment. ?Care providers, pharmacy, and demographics verified. Presentation: SOB and palpitations Admit Dx: afib rvr Re-Admit: no Barriers/Issues: none PCP: Dr. Duran Specialists: none Preferred Pharmacy: [facility] in [place] Insurance: MMO high deductible plan Rx Benefit:? Yes but again high deductible plan ?LNOK: . Ruby LW/HPOA: None on file, He does not have and he declined additional information at this time. Living Arrangements:? with in a 2 story home with bedroom on second floor. Has no accessibility issues or concerns. ADL?s: Independent Transportation: self and DME: None HHC: none SNF: None Goal: Home DC PLAN: Home, no needs identified. Had long conversation regarding DOAC for anti-coag. Instructed on reason for anti-coag. Instructed on high cost of the medications and the coupon cards. Explained he can use the 30 day free trial and then go to the $10 copay card. Explained the limit on them. Discussed the $5000 deductible and if medications were included after that. They believe so. If so --explained to save the coupon cards to next year when deductible starts over. Instructed on discount prescription cards and varying cost of medications. Instructed on low cost option of coumadin but need for frequent testing. Explained he'll need to follow physician orders on need for anti-coag and it may be rest of life so he will need to consider options. Verb understanding. Alerted patient that case management will remain available should any needs arise. Verb understanding. Yunior Mosley RN, CCM.
[2020-09-24] MEDS: Furosemide 40 MG/4 ML Vial IV (17:49)
[2020-09-24] MEDS: Metoprolol(XL)Succ 25 MG Tablet PO (18:41)
--- NOTE | 2020-09-24 19:53 | US_ITS ---
STUDY: ABDOMINAL ULTRASOUND - RIGHT UPPER QUADRANT REASON FOR VISIT: Male, 60 years old Abdominal pain, elevated LFTs TECHNIQUE: Ultrasound evaluation of the right upper quadrant was performed with real-time and static cabral-scale imaging. TECHNICAL QUALITY: Adequate. COMPARISON: None. FINDINGS: Liver: The liver measures 15.8 cm. There is normal echogenicity of the liver. The bile ducts are dilated. There is hepatic color flow. The direction of portal flow is hepatopetal. There is no demonstrated mass lesion. Gallbladder: Normal distended gallbladder. The gallbladder wall measures 5 mm. There is a negative sonographic Melchor''s sign. There is no pericholecystic fluid. There are no gallstones. Common Bile Duct (C.B.D.): The common bile duct measures 6 mm. Pancreas: The pancreas is suboptimally visualized. Right Kidney: Normal size of the right kidney. The right kidney measures 10.8 x 5.4 x 4.7 cm. Normal renal cortex. The right cortex measures 2.3 cm. There is no demonstrated renal mass or cyst. There is no right hydronephrosis. Incidentally noted is large right pleural effusion US/Liver IMPRESSION: Mildly dilated intrahepatic biliary ducts. Thickening of the gallbladder wall without evidence of gallstones. Nuclear medicine biliary scan or MRCP might be of further value. Electronically Signed: Jayden Fowler MD at 9:50 EST Tel , Service support ,
[2020-09-24] MEDS: Amiodarone 200 MG Tablet PO (23:12)
[2020-09-25] VITALS (12 sets, daily range): BP systolic 102–137; BP diastolic 70–92; PULSE 119–130; RESP 13–18; TEMP 36.4–36.8; O2SAT 92–97
[2020-09-25 06:52] LABS: Absolute Lymphocyte Count 1.39 X10^3/uL (0.83-4.51); Basophil# 0.05 X10^3/uL; Basophil% 0.5 % (0-1); Eosinophil# 0.04 X10^3/uL; Eosinophils% 0.4 % (0-5); Hematocrit 41.8 % (40-54); Hemoglobin 13.6 g/dL (13.0-16.5); Lymphocyte # 1.39 X10^3/ul (4.0); Lymphocyte % 14.8 % (19-41); Mean Corp Hgb Conc 32.5 g/dL (32-36); Mean Corpuscular Hgb 31.9 pg (27.0-32.0); Mean Corpuscular Volume 97.9 fL (80-94); Monocyte# 0.85 X10^3/uL; Monocyte% 9.1 % (0-10); NRBC Flagged by Analyzer 0 % (0-5); Neutrophil # 7.01 X10^3/uL (2.7-7.7); Neutrophil % 74.9 % (47-70); Platelet Count 177 K/mm3 (150-450); RBC Distribution Width CV 12.8 % (11.6-14.6); RBC Distribution Width SD 45.5 fl (35.1-43.9); Red Blood Count 4.27 M/mm3 (4.6-6.2); White Blood Count 9.4 K/mm3 (4.4-11.0)
[2020-09-25 07:24] LABS: ALB/GLOB Ratio 0.9 RATIO (0.9-2.4); AST(SGOT) 82 U/L (15-37); Alanine Aminotransfer ALT/SGPT 185 U/L (16-61); Albumin, Serum 2.5 g/dL (3.2-5.0); Alkaline Phosphatase 73 U/L (45-117); Anion Gap 8 (5-15); BUN 24 mg/dL (7-18); BUN/Creat Ratio 15.6 RATIO (10-20); Calcium,Total 8.2 mg/dL (8.5-10.1); Chloride 109 mmol/L (98-107); Creatinine, Serum 1.54 mg/dL (0.70-1.30); EST Glomerular Filtration Rate 50 mL/min (>60); Est Glom Filt Rate - Afr Amer 60 mL/min (>60); Estimated Creatinine Clearance 64.19 ml/min; Globulin 2.7 g/dL (2.2-4.2); Glucose 92 mg/dL (74-106); Protein, Total 5.2 g/dL (6.4-8.2); Sodium Level 140 mmol/L (136-145)
[2020-09-25] MEDS: Enoxaparin 100 MG/ML Syringe SC (09:03)
[2020-09-25] MEDS: Famotidine 20 MG Tablet PO ×2 (09:03→21:27)
[2020-09-25] MEDS: Amiodarone 200 MG Tablet PO ×2 (09:03→21:27)
[2020-09-25] MEDS: Metoprolol(XL)Succ 50 MG Tablet PO ×2 (10:35→12:02)
[2020-09-25] MEDS: 0.9% Saline Lock 10 ML Syringe IV ×2 (10:35→15:55)
[2020-09-25] MEDS: Furosemide 20 MG/2 ML VIAL IV (10:35)
--- NOTE | 2020-09-25 14:26 | PCM.PROGNOTE ---
Patient Problems: Active and Suspected Problems Atrial fibrillation with rapid ventricular response (Acute) Pneumonia (Acute) Sepsis (Acute) Elevated BP without diagnosis of hypertension (Acute) Elevated LFTs (Acute) Acute renal insufficiency (Acute) Subjective: Patient was seen and examined today, he states his breathing is much better, his creatinine is bumped up slightly and so I have elected not to give him 40 of Lasix today only 20. Patient is currently on room air and appears comfortable. Patient's heart rate is still high-it appears to me he may still be in atrial flutter, the rate appears regular at times. I have increased the patient's Toprol-XL and given him an extra 75 mg today in an attempt to slow his rate down. Patient's Lovenox will be stopped pending his heart cath in the morning. Tomorrow, anticoagulation will need to be restarted in the form of oral or Lovenox. - Physical Exam Vitals/I&O's: Vital Signs Temp Pulse Resp BP Pulse Ox 98.1 F 128 H 18 121/92 H 92 09/25/20 10:33 09/25/20 12:02 09/25/20 10:33 09/25/20 10:35 09/25/20 10:33 Oxygen Flow Rate (L/min) 4 Oxygen Delivery Method Room Air Weight: 114.1 kg Body Mass Index (BMI) 31.4 Intake and Output for Last 24 Hours 09/23/20 09/24/20 09/26/20 23:59 23:59 00:59 Intake Total 1357.13 / 1637.93 3166.43 / 3166.43 240 / 240 Output Total 4175 / 4175 825 / 825 Balance 1357.13 / 1312.93 -1008.57 / -1008.57 -585 / -585 General: Alert, Oriented x3, Cooperative, No apparent distress, Well developed, Well nourished HEENT: Atraumatic, PERRLA, EOMI, Normocephalic Oral: Moist Mucosa Neck: Supple, No JVD, Trachea Midline, Thyroid Normal Size and Texture Lungs: Clear to auscultation, Normal air movement, No rhonchi, No wheeze, No rales Cardiovascular: Regular rate, Normal S1, Normal S2, No murmurs Abdomen: Bowel Sounds Present, Soft, Non Tender, Non-Distended Extremities: No clubbing, No cyanosis, No edema, Capillary Refill Less than 3 Seconds Skin: No rashes, No breakdown Musculoskeletal: No Tenderness to Palpation of Joints or Extremities Neurological: Cranial nerves II-XII grossly intact, Neuro grossly intact, Sensory exam intact to light touch and pain, Coordination normal Psych/Mental Status: Normal Affect, Appropriate, Alert and oriented to time, place, person, mood and affect Microbiology Past 72 Hours 09/23/20 23:55 Mucosa - Nasopharyngeal Respiratory Panel (PCR) - Final 09/23/20 21:30 Urine, Clean Catch Legionella Antigen - Final 09/23/20 21:30 Urine, Clean Catch Streptococcus pneumoniae Antigen (M - Final 09/23/20 14:48 Mucosa - Nose SARS-CoV-2 Antigen (Rapid) - Final Laboratory Results 09/25/20 06:34: WBC 9.4, RBC 4.27 L, Hgb 13.6, Hct 41.8, MCV 97.9 H, MCH 31.9, MCHC 32.5, RDW Std Deviation 45.5 H, RDW Coeff of Thai 12.8, Plt Count 177, MPV 11.0, Immature Gran % (Auto) 0.300, Neut % (Auto) 74.9 H, Lymph % (Auto) 14.8 L, [place] % (Auto) 9.1, Eos % (Auto) 0.4, Baso % (Auto) 0.5, Absolute Neuts (auto) 7.0, Absolute Lymphs (auto) 1.39, Nucleated RBC % 0 09/25/20 06:34: Sodium 140, Potassium 4.0, Chloride 109 H, Carbon Dioxide 23.0, Anion Gap 8, BUN 24 H, Creatinine 1.54 H, Estim Creat Clear Calc 64.19, Est GFR (MDRD) Af Amer 60, Est GFR (MDRD) Non-Af 50 L, BUN/Creatinine Ratio 15.6, Glucose 92, Calcium 8.2 L, Total Bilirubin 1.00, AST 82 H, ALT 185 H, Alkaline Phosphatase 73, Total Protein 5.2 L, Albumin 2.5 L, Globulin 2.7, Albumin/Globulin Ratio 0.9 Current Medications Acetaminophen (Acetaminophen 325 Mg Tablet) 650 mg PO Q6H PRN PRN PRN Reason: Pain Score 1-10/Temp > 100.7 F Amiodarone HCl (Amiodarone 200 Mg Tablet) 200 mg PO BID [facility] Last Admin: 09/25/20 09:03 Dose: 200 mg Documented by: Enoxaparin Sodium (Enoxaparin 100 Mg/Ml Syringe) 100 mg 1 mg/kg (100 mg) SC Q12 [facility] Last Admin: 09/25/20 09:03 Dose: 100 mg Documented by: Famotidine (Famotidine 20 Mg Tablet) 20 mg PO BID [facility] Last Admin: 09/25/20 09:03 Dose: 20 mg Documented by: Furosemide (Furosemide 20 Mg/2 Ml Vial) 20 mg IV DAILY [facility] Last Admin: 09/25/20 10:35 Dose: 20 mg Documented by: Melatonin (Melatonin 3 Mg Tablet) 3 mg PO QHS PRN PRN PRN Reason: INSOMNIA Metoprolol Succinate (Metoprolol(Xl)Succ 50 Mg Tablet) 50 mg PO DAILY [facility] Last Admin: 09/25/20 10:35 Dose: 50 mg Documented by: Morphine Sulfate (Morphine 2 Mg/Ml Syringe) 2 mg IV Q3H PRN PRN PRN Reason: Pain Score 6-10 Ondansetron HCl (Ondansetron 4 Mg/2 Ml Vial) 4 mg IV Q8H PRN PRN PRN Reason: NAUSEA/VOMITING Last Admin: 09/23/20 22:07 Dose: 4 mg Documented by: Oxycodone HCl (Oxycodone 5 Mg Tablet) 5 mg PO Q4H PRN PRN PRN Reason: Pain Score 4-5 Sodium Chloride (0.9% Saline Lock 10 Ml Syringe) 10 - 40 ml IV UD PRN PRN Reason: SALINE FLUSH Last Admin: 09/25/20 10:35 Dose: 10 ml Documented by: Trazodone HCl (Trazodone 50 Mg Tablet) 50 mg PO QHS [facility] Last Admin: 09/24/20 23:13 Dose: 50 mg Documented by: Medical Necessity - Tobacco Use Smoking Status: Former smoker Tobacco Use: Non-smoker Assessment/Plan All Active Problems Atrial fibrillation with rapid ventricular response (Acute) Pneumonia (Acute) Sepsis (Acute) Elevated BP without diagnosis of hypertension (Acute) Elevated LFTs (Acute) Acute renal insufficiency (Acute) #1 new onset atrial fibrillation/flutter with rapid ventricular response-currently patient is on oral amiodarone and a beta-beena, I have chosen not to add an KARRI inhibitor today due to increasing the patient's beta-beena. #2 acute systolic congestive heart failure- patient has no evidence of pneumonia at this time #3 elevated [id number] unclear, patient's bilirubin today was normal #4 stage III chronic kidney disease-etiology unclear, labs will be monitored. #5 cardiomyopathy-etiology unclear, it sounds as though the patient could have had a viral etiology, he was sick in July 2020 with a viral illness and he notes that he became dyspneic and tired after the illness in July. I talked at length with the patient and the patient's yesterday and described the procedure for the cardiac catheterization and the outcomes which might occur (patient may have to be transferred to another hospital or have a stent put in here). They both are in favor with proceeding with a cardiac catheterization here. Inpatient E&M: 05775 Subs Hosp L2
[2020-09-25] MEDS: Digoxin 250 MCG/ML Ampul 500 MCG IV (15:55)
--- NOTE | 2020-09-25 16:07 | PCM.PN.CARD ---
Subjectve: Patient has noticed improvement in his breathing and abdominal distention after starting the Lasix. Patient's heart rate is running in the 120s and his metoprolol dose was increased. IV amiodarone has been switched to p.o. Objective: Vital Signs Temp Pulse Resp BP Pulse Ox 97.5 F L 126 H 18 119/86 H 93 09/25/20 15:55 09/25/20 15:55 09/25/20 15:55 09/25/20 15:55 09/25/20 15:55 Oxygen Flow Rate (L/min) 4 Oxygen Delivery Method Room Air Weight: 251 lb 8.759 oz Body Mass Index (BMI) 31.4 Intake and Output for Last 24 Hours 09/23/20 09/24/20 09/26/20 23:59 23:59 00:59 Intake Total 1357.13 / 1637.93 3166.43 / 3166.43 240 / 240 Output Total 4175 / 4175 825 / 825 Balance 1357.13 / 1312.93 -1008.57 / -1008.57 -585 / -585 General: Awake, Alert, Oriented x 3 HEENT: Atraumatic Oral: Moist Mucosa Neck: Supple Lungs: Rales - Yamil Bases Cardiovascular: Regular Rhythm Abdomen: Soft Extremities: No edema 09/25/20 06:34: WBC 9.4, RBC 4.27 L, Hgb 13.6, Hct 41.8, MCV 97.9 H, MCH 31.9, MCHC 32.5, Plt Count 177, MPV 11.0, Immature Gran % (Auto) 0.300, Neut % (Auto) 74.9 H, Lymph % (Auto) 14.8 L, [place] % (Auto) 9.1, Eos % (Auto) 0.4, Baso % (Auto) 0.5, Absolute Neuts (auto) 7.0, Nucleated RBC % 0 09/25/20 06:34: Sodium 140, Potassium 4.0, Chloride 109 H, Carbon Dioxide 23.0, Anion Gap 8, BUN 24 H, Creatinine 1.54 H, Est GFR (MDRD) Af Amer 60, Est GFR (MDRD) Non-Af 50 L, BUN/Creatinine Ratio 15.6, Glucose 92, Calcium 8.2 L, Total Bilirubin 1.00 Rhythm: EKG: ECHO: Stress Test: Cardiac Cath: PCI: CT Surgery: Holter monitor: EPS: PPM: CXR: Chest CT Scan: Medical Necessity - Tobacco Use Smoking Status: Former smoker Tobacco Use: Non-smoker Assessment/Plan 1. Atrial fibrillation: Patient is in a flutter with 2-1 block. Agree with increasing the metoprolol dose. It will be reasonable to give him a loading dose of digoxin and continue the amiodarone. Patient will eventually need Eliquis however if his creatinine is stable we are planning to proceed with coronary angiography tomorrow. 2. LV dysfunction: Patient has been started on Toprol-XL. We will proceed with coronary angiography if his creatinine is stable tomorrow. Not on KARRI inhibitors yet because of borderline blood pressure and high heart rate which will need up titration of metoprolol.
[2020-09-25] MEDS: Digoxin 250 MCG/ML Ampul IV (21:15)
[2020-09-25] MEDS: traZODone 50 MG Tablet PO (22:35)
[2020-09-26] VITALS (33 sets, daily range): BP systolic 97–128; BP diastolic 66–103; PULSE 0–130; RESP 12–79; TEMP 36.3–36.6; O2SAT 91–98
--- NOTE | 2020-09-26 05:50 | EKG12_ITS ---
Test Reason : AM EKG Blood Pressure : / mmHG Vent. Rate : 107 BPM Atrial Rate : 271 BPM P-R Int : 000 ms QRS Dur : 082 ms QT Int : 342 ms P-R-T Axes : -84 040 248 degrees QTc Int : 456 ms Atrial flutter with variable A-V block ST & T wave abnormality, consider inferior ischemia ST & T wave abnormality, consider anterior ischemia Abnormal ECG When compared with ECG of 24-SEP-2020 05:23, MANUAL COMPARISON REQUIRED, DATA IS UNCONFIRMED Confirmed by KATRIN BAHENA, TRISHA ([id number]), publishing editor LIAM BOWSER ([id number]) on 09/28/2020 10:21:56 AM Referred By: DR MATSON Confirmed By:TRISHA WILKES MD
[2020-09-26] MEDS: Amiodarone 200 MG Tablet PO ×2 (06:10→21:12)
[2020-09-26] MEDS: Metoprolol(XL)Succ 100 MG Tablet PO (06:11)
[2020-09-26 08:27] LABS: Anion Gap 5 (5-15); BUN 22 mg/dL (7-18); BUN/Creat Ratio 15.1 RATIO (10-20); Calcium,Total 8.3 mg/dL (8.5-10.1); Chloride 109 mmol/L (98-107); Creatinine, Serum 1.46 mg/dL (0.70-1.30); EST Glomerular Filtration Rate 53 mL/min (>60); Est Glom Filt Rate - Afr Amer 64 mL/min (>60); Estimated Creatinine Clearance 67.71 ml/min; Glucose 83 mg/dL (74-106); Potassium 3.8 mmol/L (3.5-5.1); Sodium Level 140 mmol/L (136-145)
--- NOTE | 2020-09-26 08:59 | PN.CARD_ITS ---
Subjectve: Patient seen and evaluated. Appears to be doing better. Objective: Vital Signs Temp Pulse Resp BP Pulse Ox 97.9 F 100 20 H 128/103 H 91 09/26/20 03:22 09/26/20 07:06 09/26/20 03:22 09/26/20 06:11 09/26/20 07:42 Oxygen Flow Rate (L/min) 4 Oxygen Delivery Method Room Air Weight: 251 lb 5.231 oz Body Mass Index (BMI) 31.4 Intake and Output for Last 24 Hours 09/24/20 09/25/20 09/26/20 22:59 23:59 23:59 Intake Total 240 / 240 Output Total 400 / 400 Balance -160 / -160 General: Awake, Alert, Oriented x 3 HEENT: PERRL, EOMI, Sclera Non Icteric Neck: Supple, Good ROM, No Lymph Node Enlargement Lungs: Clear to auscultation Cardiovascular: Irregular Rhythm, Normal S1, Normal S2, No Murmurs, No Rubs, No Gallops Vascular: No Carotid Bruits, Normal Femoral Pulses, Normal Radial Pulses, Normal Dorsalis Pedal Pulse, Normal Posterior Tibial Pulses Abdomen: Bowel Sounds Present, Soft, Non Tender, No HSM, No Organomegaly Extremities: No Cyanosis, No Clubbing, No edema Neurological: No Focal Motor or Sensory Deficit 09/26/20 08:10: Sodium 140, Potassium 3.8, Chloride 109 H, Carbon Dioxide 26.0, Anion Gap 5, BUN 22 H, Creatinine 1.46 H, Est GFR (MDRD) Af Amer 64, Est GFR (MDRD) Non-Af 53 L, BUN/Creatinine Ratio 15.1, Glucose 83, Calcium 8.3 L Rhythm: EKG: ECHO: Stress Test: Cardiac Cath: PCI: CT Surgery: Holter monitor: EPS: PPM: CXR: Chest CT Scan: Medical Necessity - Tobacco Use Smoking Status: Former smoker Tobacco Use: Non-smoker Assessment/Plan 1. Atrial flutter * Patient presents with recent onset atrial flutter. The goal will be to try and anticoagulate as well as rate control. * Will start diltiazem IV for better rate control and concurrently start p.o. 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 * Will recommend cardioversion in a week or 2. Likely JT guided. * 2. Cardiomyopathy * The above appears to be nonischemic based on the cardiac catheterization findings today. It demonstrated the following: Normal left main coronary artery. Left anterior descending artery with minimal disease. Left circumflex artery nondominant with minimal disease. Dominant right coronary artery with minimal disease. Based on the above angiographic findings would continue with medical therapy with beta-beena and KARRI inhibitor as tolerated. We will likely keep in the hospital 1 more day for better rate control. Thank you for allowing me to participate in the care of your patient. Please don't hesitate to call if any issues arise.
--- NOTE | 2020-09-26 09:10 | CL.D_ITS ---
Patient Name: EDWIN KNAPP Study Date: 09/26/2020 Performing: Wood Hutson MD Ht: 75.98 inches 193 cm : 1960 Wt: 251.33 lbs 114 kg Age: 60 Gender: male BSA: 2.44 PROCEDURE(S) PERFORMED [id number] CLINICAL PROFILE AND INDICATIONS Indications: Cardiac Arrythmia Heart Failure: None Stress/Imaging Stress/Image Study Performed: No CAD Presentations: Symptom unlikely to be ischemic. CONCLUSIONS Atrial flutter. Minimal CAD RECOMMENDATIONS Rate control; anticoagulation DESCRIPTION OF PROCEDURE The patient arrived to the procedure lab. The risks and benefits of the procedure as well as a full d escription of our services here and current unavailability of surgical backup were fully explained to the patient and/or their significant other prior to the catheterization. The Timeout was completed, verifying the correct patient and procedure. The patient's procedural site was prepped and draped in the usual fashion. Local anesthetic was given subcutaneously to right radial region with Lidocaine 2% . Using a modified Seldinger technique, arterial access was obtained via the right radial artery, a 6 Fr sheath was inserted. Left Coronary Artery selective angiography was performed in multiple views u sing a 5 Fr. 4.0 Harwood catheter. Right Coronary Artery selective angiography was then performed in mu ltiple views using a 5 Fr. 4.0 Harwood catheter. CORONARY ANGIOGRAPHY DOMINANCE: Right Dominant LEFT HEART ASSESSMENT Left Ventricular Ejection Fraction: by Echo 25 % Depressed Left Ventricular systolic function LEFT MAIN: No significant disease noted LEFT ANTERIOR DESCENDING ARTERY: Mild luminal irregularities less than 30% CIRCUMFLEX ARTERY: Mild luminal irregularities less than 30% RIGHT CORONARY ARTERY: No significant disease noted COMPLICATIONS No Complications PROCEDURE MEDICATIONS Versed 1 mg IV Fentanyl 50 mcg IV Versed 1 mg IV Oxygen: 2 L/min via nasal cannula Cardizem 25 mg IV bolus 09/26/2020 09:00:47 Heparin given IA 09/26/2020 08:39:16 Verapamil 2.5mg, Ntg 100mcgs, 2000 units of Heparin given IA 09/26/2020 08:39:16 SUMMARY OF HEMODYNAMIC DATA Time AIR REST ECG 08:27:30 AO 133/82 (101) SA 08:41:05 AO 122/98 (108) 08:45:02 Signed By Haresh, Wood MD On 09/26/2020 9:10:18 AM Signed By Wood Hutson MD On 09/26/2020 9:09:42 AM Wood Hutson MD
--- NOTE | 2020-09-26 09:42 | CASEMGMT ---
According to the [employer] website, the following are in-network tertiary facilities: [facility], [facility], [facility], [facility], [facility], [facility], [facility], [facility], [facility], and . Vivian DONALD CM
--- NOTE | 2020-09-26 10:10 | NURSING ---
This RN gave report to SHABANA Beltran who is taking over care.
--- NOTE | 2020-09-26 10:55 | EKG12_ITS ---
Test Reason : AM EKG Blood Pressure : / mmHG Vent. Rate : 110 BPM Atrial Rate : 220 BPM P-R Int : 000 ms QRS Dur : 082 ms QT Int : 374 ms P-R-T Axes : 267 050 211 degrees QTc Int : [address] & T wave abnormality, consider inferior ischemia ST & T wave abnormality, consider anterior ischemia Abnormal ECG When compared with ECG of 23-SEP-2020 14:15, MANUAL COMPARISON REQUIRED, DATA IS UNCONFIRMED Confirmed by KATRIN BAHENA, TRISHA ([id number]), film or videotape editor LIAM BOWSER ([id number]) on 09/28/2020 10:24:03 AM Referred By: HUYEN Confirmed By:TRISHA WILKES MD
[2020-09-26] MEDS: Famotidine 20 MG Tablet PO ×2 (12:14→21:12)
[2020-09-26] MEDS: Furosemide 40 MG Tablet PO (12:15)
[2020-09-26] MEDS: APIXABAN 5 MG TABLET PO ×2 (12:15→21:12)
--- NOTE | 2020-09-26 15:12 | PCM.PN.HOSP ---
Patient Problems: Active and Suspected Problems (Last Updated 09/26/20 @ 10:38 by Shobha Mccoy) Atrial fibrillation with rapid ventricular response (Acute 09/23/20) Pneumonia (Acute) Sepsis (Acute) Elevated BP without diagnosis of hypertension (Acute) Elevated LFTs (Acute) Acute renal insufficiency (Acute) Subjective: Doing well, no issues overnight. Had his cardiac cath today which showed no coronary artery disease. Vitals/I&O's: Vital Signs Temp Pulse Resp BP Pulse Ox 97.9 F 0 L 17 108/82 H 94 09/26/20 13:44 09/26/20 14:00 09/26/20 14:00 09/26/20 14:00 09/26/20 14:00 Oxygen Flow Rate (L/min) 2 Oxygen Delivery Method Nasal Cannula Weight: 251 lb 5.231 oz Body Mass Index (BMI) 31.4 Intake and Output for Last 24 Hours 09/24/20 09/25/20 09/26/20 22:59 23:59 23:59 Intake Total 340 / 340 Output Total 1000 / 1000 Balance -660 / -660 General: Alert, Oriented x3, Cooperative, No apparent distress HEENT: Atraumatic, PERRLA, EOMI, Normocephalic Oral: Moist Mucosa Neck: Supple, No JVD Lungs: Clear to auscultation, Normal air movement, No rhonchi, No wheeze, No rales Cardiovascular: Regular rate, Regular Rhythm, Normal S1, Normal S2, No murmurs Abdomen: Soft, Non Tender, Non-Distended, No Hepato-splenomegaly Extremities: No edema, Capillary Refill Less than 3 Seconds Skin: No rashes, No breakdown Neurological: Neuro grossly intact, Sensory exam intact to light touch and pain Psych/Mental Status: Normal Affect, Appropriate Microbiology Past 72 Hours 09/23/20 23:55 Mucosa - Nasopharyngeal Respiratory Panel (PCR) - Final 09/23/20 21:30 Urine, Clean Catch Legionella Antigen - Final 09/23/20 21:30 Urine, Clean Catch Streptococcus pneumoniae Antigen (M - Final 09/23/20 14:48 Mucosa - Nose SARS-CoV-2 Antigen (Rapid) - Final Laboratory Results 09/26/20 08:10: Sodium 140, Potassium 3.8, Chloride 109 H, Carbon Dioxide 26.0, Anion Gap 5, BUN 22 H, Creatinine 1.46 H, Estim Creat Clear Calc 67.71, Est GFR (MDRD) Af Amer 64, Est GFR (MDRD) Non-Af 53 L, BUN/Creatinine Ratio 15.1, Glucose 83, Calcium 8.3 L Current Medications Acetaminophen (Acetaminophen 325 Mg Tablet) 650 mg PO Q6H PRN PRN PRN Reason: Pain Score 1-10/Temp > 100.7 F Amiodarone HCl (Amiodarone 200 Mg Tablet) 200 mg PO BID [facility] Last Admin: 09/26/20 06:10 Dose: 200 mg Documented by: Apixaban (Apixaban 5 Mg Tablet) 5 mg PO BID [facility] Last Admin: 09/26/20 12:15 Dose: 5 mg Documented by: Famotidine (Famotidine 20 Mg Tablet) 20 mg PO BID [facility] Last Admin: 09/26/20 12:14 Dose: 20 mg Documented by: Furosemide (Furosemide 40 Mg Tablet) 40 mg PO DAILY [facility] Last Admin: 09/26/20 12:15 Dose: 40 mg Documented by: Sodium Chloride () 1,000 mls @ 0 mls/hr IV .Q0M [facility] Diltiazem HCl 125 mg/ Dextrose 125 mls @ 5 mls/hr IV .Q25H [facility]; Protocol Last Admin: 09/26/20 10:07 Dose: Not Given Documented by: Melatonin (Melatonin 3 Mg Tablet) 3 mg PO QHS PRN PRN PRN Reason: INSOMNIA Metoprolol Succinate (Metoprolol(Xl)Succ 100 Mg Tablet) 100 mg PO DAILY [facility] Last Admin: 09/26/20 06:11 Dose: 100 mg Documented by: Morphine Sulfate (Morphine 2 Mg/Ml Syringe) 2 mg IV Q3H PRN PRN PRN Reason: Pain Score 6-10 Ondansetron HCl (Ondansetron 4 Mg/2 Ml Vial) 4 mg IV Q8H PRN PRN PRN Reason: NAUSEA/VOMITING Last Admin: 09/23/20 22:07 Dose: 4 mg Documented by: Oxycodone HCl (Oxycodone 5 Mg Tablet) 5 mg PO Q4H PRN PRN PRN Reason: Pain Score 4-5 Sodium Chloride (0.9% Saline Lock 10 Ml Syringe) 10 - 40 ml IV UD PRN PRN Reason: SALINE FLUSH Last Admin: 09/25/20 15:55 Dose: 10 ml Documented by: Trazodone HCl (Trazodone 50 Mg Tablet) 50 mg PO QHS [facility] Last Admin: 09/25/20 22:35 Dose: 50 mg Documented by: STROKE Vital Signs/Narrative: Vital Signs Temp Pulse Resp BP Pulse Ox 09/26/20 14:00 0 L 17 108/82 H 94 09/26/20 13:44 97.9 F 65 18 100/74 93 09/26/20 13:43 65 09/26/20 13:00 100 79 H 100/74 95 09/26/20 12:30 65 09/26/20 12:00 72 23 H 97/66 95 09/26/20 11:30 66 15 108/78 95 09/26/20 11:15 63 16 108/78 96 Medical Necessity - Tobacco Use Smoking Status: Former smoker Tobacco Use: Non-smoker Assessment/Plan All Active Problems (Last Updated 09/26/20 @ 10:38 by Shobha Mccoy) Nonobstructive atherosclerosis of coronary artery (Acute) Atrial fibrillation with rapid ventricular response (Acute 09/23/20) Acute HFrEF (heart failure with reduced ejection fraction) (Acute 09/23/20) Non-ischemic cardiomyopathy (Acute) Nonrheumatic mitral (valve) insufficiency (Acute) Pneumonia (Acute) Sepsis (Acute) Elevated BP without diagnosis of hypertension (Acute) Elevated LFTs (Acute) Acute renal insufficiency (Acute) 1. 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 CKD 3 -Stable -Creatinine is at baseline DVT: SCDs Inpatient E&M: 64435 Subs Hosp L2
[2020-09-26] MEDS: traZODone 50 MG Tablet PO (21:12)
[2020-09-27] VITALS (16 sets, daily range): BP systolic 105–137; BP diastolic 66–90; PULSE 65–85; RESP 13–18; TEMP 36.4–36.6; O2SAT 92–98
[2020-09-27 07:26] LABS: Anion Gap 6 (5-15); BUN 19 mg/dL (7-18); BUN/Creat Ratio 13.7 RATIO (10-20); Calcium,Total 8.6 mg/dL (8.5-10.1); Chloride 107 mmol/L (98-107); Creatinine, Serum 1.39 mg/dL (0.70-1.30); EST Glomerular Filtration Rate 56 mL/min (>60); Est Glom Filt Rate - Afr Amer 67 mL/min (>60); Estimated Creatinine Clearance 71.12 ml/min; Glucose 91 mg/dL (74-106); Potassium 4.2 mmol/L (3.5-5.1); Sodium Level 139 mmol/L (136-145)
[2020-09-27] MEDS: Metoprolol(XL)Succ 100 MG Tablet PO (08:09)
[2020-09-27] MEDS: Famotidine 20 MG Tablet PO (08:10)
[2020-09-27] MEDS: APIXABAN 5 MG TABLET PO (08:10)
[2020-09-27] MEDS: Furosemide 40 MG Tablet PO (08:10)
[2020-09-27] MEDS: Amiodarone 200 MG Tablet PO (08:10)
--- NOTE | 2020-09-27 08:52 | PN.CARD_ITS ---
Subjectve: Patient seen and evaluated. Appears to be doing better. Objective: Vital Signs Temp Pulse Resp BP Pulse Ox 97.6 F L 85 16 133/90 H 92 09/27/20 06:00 09/27/20 08:41 09/27/20 08:00 09/27/20 08:41 09/27/20 08:20 Oxygen Flow Rate (L/min) 2 Oxygen Delivery Method Room Air Weight: 245 lb 2.464 oz Body Mass Index (BMI) 31.4 Intake and Output for Last 24 Hours 09/25/20 09/26/20 09/27/20 23:59 23:59 23:59 Intake Total 1035.33 / 1045.33 333.42 / 333.42 Output Total 2500 / 2500 1100 / 1100 Balance -1464.67 / -1454.67 -766.58 / -766.58 General: Awake, Alert, Oriented x 3 HEENT: PERRL, EOMI, Sclera Non Icteric Neck: Supple, Good ROM, No Lymph Node Enlargement Lungs: Clear to auscultation Cardiovascular: Irregular Rhythm, Normal S1, Normal S2, No Murmurs, No Rubs, No Gallops 09/27/20 06:36: Sodium 139, Potassium 4.2, Chloride 107, Carbon Dioxide 26.0, Anion Gap 6, BUN 19 H, Creatinine 1.39 H, Est GFR (MDRD) Af Amer 67, Est GFR (MDRD) Non-Af 56 L, BUN/Creatinine Ratio 13.7, Glucose 91, Calcium 8.6 Rhythm: EKG: ECHO: Stress Test: Cardiac Cath: PCI: CT Surgery: Holter monitor: EPS: PPM: CXR: Chest CT Scan: Medical Necessity - Tobacco Use Smoking Status: Former smoker Tobacco Use: Non-smoker Assessment/Plan 1. Atrial flutter * Patient presents with recent onset atrial flutter. The goal will be to try and anticoagulate as well as rate control. * Was started on IV diltiazem which I would switch over to p.o. metoprolol today and DC IV. 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 * Will recommend cardioversion in a week or 2. Likely JT guided. * 2. Cardiomyopathy * The above appears to be nonischemic based on the cardiac catheterization findings today. It demonstrated the following: Normal left main coronary artery. Left anterior descending artery with minimal disease. Left circumflex artery nondominant with minimal disease. Dominant right coronary artery with minimal disease. Based on the above angiographic findings would continue with medical therapy with beta-beena and KARRI inhibitor as tolerated. We will likely keep in the hospital till the afternoon to see how he is doing.. Thank you for allowing me to participate in the care of your patient. Please don't hesitate to call if any issues arise.
--- NOTE | 2020-09-27 10:46 | DCINST_ITS ---
- Discharge Diagnoses Current Active Problems: Current Active and Chronic Problems (Last Updated 09/26/20 @ 10:38 by Shobha Mccoy) Atrial fibrillation with rapid ventricular response (Acute 09/23/20) Pneumonia (Acute) Sepsis (Acute) Elevated BP without diagnosis of hypertension (Acute) Elevated LFTs (Acute) Acute renal insufficiency (Acute) You will use the following diet at home:: Regular Your food should be the consistency of: Regular Your liquids should be the consistency of: Regular/Thin Discharge Activity: Return to Normal Activity Call your doctor if you observe: Fever of 101 or Higher, Shortness of breath, Dizziness, Fainting spells, Swelling in the ankles, Chest pain, Increased palpitations (irregular heartbeat) Instructions: ED Atrial Flutter, Cardiomyopathy Allergies/Adverse Reactions: Allergies azithromycin [From Zithromax Z-Benigno] Adverse Reaction (Verified 09/23/20 20:17) palpitations/stomach bloating Medications to take at Discharge Trazodone HCl 50 mg PO QHS 09/23/20 Amiodarone HCl [Cordarone] 200 mg PO BID #60 tab 09/27/20 Apixaban [Eliquis] 5 mg PO BID #60 tab 09/27/20 Furosemide [Lasix] 40 mg PO DAILY #30 tab 09/27/20 Metoprolol(XL)Succ [Toprol Xl (Beta Randall)] 100 mg PO DAILY #30 tab 09/27/20 The following prescriptions were given: Amiodarone HCl [Cordarone] 200 mg PO BID #60 tab Transmission Status: Pending to [facility] Apixaban [Eliquis] 5 mg PO BID #60 tab Transmission Status: Pending to [facility] Furosemide [Lasix] 40 mg PO DAILY #30 tab Transmission Status: Pending to [facility] Metoprolol(XL)Succ [Toprol Xl (Beta Randall)] 100 mg PO DAILY #30 tab Transmission Status: Pending to [facility] Primary Care Physician: Sydney Weston MD [Primary Care Provider] - Please follow up with your Primary Care Physician in: 3-5 days Test Results: Test results from this visit will be discussed in further detail at your follow- up appointment, if applicable. Please Follow Up With: Wood Hutson MD When: 1-2 weeks
--- NOTE | 2020-09-27 12:18 | CASEMGMT ---
Pt does not qualify for home oxygen at this time. Pt also to be sent home on Eliquis at discharge and med e-scribed to [facility] retail pharmacy previously. Call to Joshua, pharmacist, and he states 30 day free trial card already applied for pt at this time. Pt also provided with a $10 co-pay card at this time. Pt updated on all, voices understanding. Pt voices no further concerns/needs. Vivian DONALD CM
--- NOTE | 2020-09-27 12:49 | PHA.DC.MC ---
Pharmacy Service has performed discharge medication reconciliation and counseling for this patient. 1. AMIODARONE 200MG PO BID 2. APIXABAN 5MG PO BID 3. FUROSEMIDE 40MG PO DAILY 4. METOPROLOL SUCCINATE 100MG PO DAILY The patient's discharge medication list was reviewed for discrepancies and discrepancies were resolved. Home Medications Trazodone HCl 50 mg PO QHS 09/23/20 Amiodarone HCl [Cordarone] 200 mg PO BID #60 tab 09/27/20 Apixaban [Eliquis] 5 mg PO BID #60 tab 09/27/20 Furosemide [Lasix] 40 mg PO DAILY #30 tab 09/27/20 Metoprolol(XL)Succ [Toprol Xl (Beta Randall)] 100 mg PO DAILY #30 tab 09/27/20 The patient was counseled on the following discharge medications and changes in medications for homegoing were reviewed. The Reason for Use, instructions for use, and potential side effects were reviewed for all new medications. The patient's questions regarding all of their medications were answered. The patient was able to verbally demonstrate an understanding of their discharge medications.
--- NOTE | 2020-09-27 16:26 | DS.PCM_ITS ---
Discharge Date and Diagnosis - Problem List Patient Problems: Active and Suspected Problems (Last Updated 09/26/20 @ 10:38 by Shobha Mccoy) Atrial fibrillation with rapid ventricular response (Acute 09/23/20) Pneumonia (Acute) Sepsis (Acute) Elevated BP without diagnosis of hypertension (Acute) Elevated LFTs (Acute) Acute renal insufficiency (Acute) Date of Admission: 09/23/20 Date of Discharge: 09/27/20 - Primary Discharge Diagnosis Acute Problems: Active Problems (Last Updated 09/26/20 @ 10:38 by Shobha Mccoy) Atrial fibrillation with rapid ventricular response (Acute 09/23/20) Pneumonia (Acute) Sepsis (Acute) Elevated BP without diagnosis of hypertension (Acute) Elevated LFTs (Acute) Acute renal insufficiency (Acute) Hospital Course and Treatment Imaging Results: Clinical Impression(s) from Imaging Studies Abdomen X-Ray 09/23/20 06:07 IMPRESSION: Mildly prominent loops of air-filled small bowel. Electronically Signed: Michael Rosen MD at 17:06 EST Tel , Service support , Chest X-Ray 09/23/20 14:42 IMPRESSION: Hazy airspace opacities in the bilateral upper lobes and right lung base in keeping with pneumonia. Electronically Signed: Michael Rosen MD at 15:26 EST Tel , Service support , Chest CTA 09/23/20 19:14 IMPRESSION: 1. No evidence of pulmonary embolus. 2. No aortic dissection or aneurysm. 3. Bilateral upper lobe perihilar groundglass infiltrates suggesting pneumonia. 4. Small bilateral pleural effusions with subsegmental atelectasis. Electronically Signed: Alexis Trivedi DO at 20:12 EST Tel [phone], Service support , Liver Ultrasound 09/24/20 19:53 IMPRESSION: Mildly dilated intrahepatic biliary ducts. Thickening of the gallbladder wall without evidence of gallstones. Nuclear medicine biliary scan or MRCP might be of further value. Electronically Signed: Jayden Fowler MD at 9:50 EST Tel , Service support , Echo: Interpretation Summary The estimated ejection fraction is 20-25 %. Stage 1 diastolic dysfunction. There is severe global hypokinesis of the left ventricle. Moderately severe (3+) mitral valve insufficiency. Mild tricuspid valve insufficiency. PROCEDURE(S) PERFORMED MG07-BXI/COR CLINICAL PROFILE AND INDICATIONS Indications: Cardiac Arrythmia Heart Failure: None Stress/Imaging Stress/Image Study Performed: No CAD Presentations: Symptom unlikely to be ischemic. CONCLUSIONS Atrial flutter. Minimal CAD RECOMMENDATIONS Rate control; anticoagulation DESCRIPTION OF PROCEDURE The patient arrived to the procedure lab. The risks and benefits of the procedure as well as a full description of our services here and current unavailability of surgical backup were fully explained to the patient and/or their significant other prior to the catheterization. The Timeout was completed, verifying the correct patient and procedure. The patient's procedural site was prepped and draped in the usual fashion. Local anesthetic was given subcutaneously to right radial region with Lidocaine 2%. Using a modified Seldinger technique, arterial access was obtained via the right radial artery, a 6Fr sheath was inserted. Left Coronary Artery selective angiography was performed in multiple views using a 5 Fr. 4.0 [place] catheter. Right Coronary Artery selective angiography was then performed in multiple views using a 5 Fr. 4.0 [place] catheter. CORONARY ANGIOGRAPHY DOMINANCE: Right Dominant LEFT HEART ASSESSMENT Left Ventricular Ejection Fraction: by Echo 25 % Depressed Left Ventricular systolic function LEFT MAIN: No significant disease noted LEFT ANTERIOR DESCENDING ARTERY: Mild luminal irregularities less than 30% CIRCUMFLEX ARTERY: Mild luminal irregularities less than 30% RIGHT CORONARY ARTERY: No significant disease noted Consults: Cardiology Operations: None Procedures: 2-D Echocardiogram, Cardiac catheterization Summary of Care Provided: Per HPI: The patient is a 60 y/o M w/ denied medical history on no medications who presents to the [facility] ED on 09/23/20 with history of onset in late July generalized fatigue, malaise, frontal occasional headaches, body aches, cough, dyspnea as well as alteration to his sense of taste however he reports that his taste only changed following taking a Z-Benigno with noted virtual visit 09/13/2020 given his ongoing symptoms without improvement with PCP administration at that time of Z-Benigno with no improvement and immediate onset evening following dose taken earlier in the day of significantly racing heart and dyspnea, worse with exertion with elevated blood pressures prompting ED evaluation. His denies having any symptoms and has felt well. Patient is very active normally and has had no health issues. Work-up in the ED included T 97, heart rate initially 77 however increased to 140, BP 156/117, respiratory rate 20, 97% on room air, CBC with WBC 8.9, hemoglobin 16.6, platelet 231 without marked shift, unremarkable coags, CMP with BUN/creatinine 15/1.35, glucose 120, total bilirubin 1.80, AST/ALT 123/260, alk phos 112, troponin less than 0.015, rapid Covid antigen negative, chest x-ray with consolidative BL UL infiltrates, abdominal plain film with mildly prominent loops of air-filled small bowel, EKG with atrial fibrillation with RVR. In the ED patient administered normal saline and Cardize m 25 mg IV bolus x1. In the ED patient also given Levaquin. Covid PCR pending upon evaluation of patient. Hospital Course: 1. New onset A. 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 He underwent an echo which demonstrated a severely depressed EF so he underwent cardiac cath for further evaluation of his coronaries. His coronaries were normal and his EF being 20% was likely secondary to either his viral myocarditis which may or may not have led to a cardiomyopathy versus a tachycardia induced cardiomyopathy given his a flutter with RVR. And given his acute heart failure this likely explained the infiltrates seen in his lung fie lds bilaterally. He was not afebrile and his leukocytosis resolved without any antibiotic therapy. His heart rate came under control with a combination of medications including amiodarone and Cardizem drip. On the morning of discharge she was transitioned to long-acting metoprolol and his Cardizem drip was able to be discontinued. His heart rate remained normal into the afternoon and therefore he was okay for discharge. He was discharged on amiodarone 200 mg twice daily as well as Eliquis 5 mg p.o. twice daily, Lasix 40 mg daily as well as metoprolol 100 mg daily. He will need to follow-up with cardiology in 1 to 2 weeks for JT and cardioversion at which point further adjustments to his medications can be made. He will also likely need an outpatient echo to make sure that his EF is returning to normal if possible. This is a huge adjustment for him as he had been previously very healthy and only took one medication. I did discuss with him at length the mental health implications of having such a severe turn in his health and he did understand my concern and seems willing to discuss the issue further with his PCP and if necessary a therapist. I discussed with him the plan for discharge today and he expressed understanding of the risk and benefits of going home and would like to go home today. 2. Chronic kidney disease stage III is a chronic medical condition which complicates his care. His home medications were continued where appropriate. Patient Problems: Active and Suspected Problems (Last Updated 09/26/20 @ 10:38 by Shobha Mccoy) Atrial fibrillation with rapid ventricular response (Acute 09/23/20) Pneumonia (Acute) Sepsis (Acute) Elevated BP without diagnosis of hypertension (Acute) Elevated LFTs (Acute) Acute renal insufficiency (Acute) - Physical Exam Vitals/I&O's: Vital Signs Temp Pulse Resp BP Pulse Ox 97.7 F L 67 17 107/66 93 09/27/20 11:24 09/27/20 11:24 09/27/20 11:24 09/27/20 11:24 09/27/20 11:24 Oxygen Flow Rate (L/min) 2 Oxygen Delivery Method Room Air Weight: 245 lb 2.464 oz Body Mass Index (BMI) 31.4 Intake and Output for Last 24 Hours 09/25/20 09/26/20 09/27/20 23:59 23:59 23:59 Intake Total 1035.33 / 1045.33 573.42 / 573.42 Output Total 2500 / 2500 2099 / 2100 Balance -1464.67 / -1454.67 -1526.58 / -1526.58 General: Alert, Oriented x3, Cooperative, No apparent distress HEENT: Atraumatic, PERRLA, EOMI, Normocephalic Oral: Moist Mucosa Neck: Supple, No JVD Lungs: Clear to auscultation, Normal air movement, No rhonchi, No wheeze, No rales Cardiovascular: Regular rate, Regular Rhythm, Normal S1, Normal S2, No murmurs Abdomen: Soft, Non Tender, Non-Distended, No Hepato-splenomegaly Extremities: No edema, Capillary Refill Less than 3 Seconds Skin: No rashes, No breakdown Neurological: Neuro grossly intact, Sensory exam intact to light touch and pain Psych/Mental Status: Normal Affect, Appropriate Laboratory Results 09/27/20 06:36: Sodium 139, Potassium 4.2, Chloride 107, Carbon Dioxide 26.0, Anion Gap 6, BUN 19 H, Creatinine 1.39 H, Estim Creat Clear Calc 71.12, Est GFR (MDRD) Af Amer 67, Est GFR (MDRD) Non-Af 56 L, BUN/Creatinine Ratio 13.7, Glucose 91, Calcium 8.6 Discharge Activity: Return to Normal Activity Call your doctor if you observe: Fever of 101 or Higher, Shortness of breath, Dizziness, Fainting spells, Swelling in the ankles, Chest pain, Increased palpitations (irregular heartbeat) Home Medications: Medications to take at Discharge Trazodone HCl 50 mg PO QHS 09/23/20 Amiodarone HCl [Cordarone] 200 mg PO BID #60 tab 09/27/20 Apixaban [Eliquis] 5 mg PO BID #60 tab 09/27/20 Furosemide [Lasix] 40 mg PO DAILY #30 tab 09/27/20 Metoprolol(XL)Succ [Toprol Xl (Beta Randall)] 100 mg PO DAILY #30 tab 09/27/20 Following Prescriptions Were Given to Patient: Amiodarone HCl [Cordarone] 200 mg PO BID #60 tab Transmission Status: Received by [facility] Apixaban [Eliquis] 5 mg PO BID #60 tab Transmission Status: Received by [facility] Furosemide [Lasix] 40 mg PO DAILY #30 tab Transmission Status: Received by [facility] Metoprolol(XL)Succ [Toprol Xl (Beta Randall)] 100 mg PO DAILY #30 tab Transmission Status: Received by [facility] Primary Care Physician: Sydney Weston MD [Primary Care Provider] - Please follow up with your Primary Care Physician in: 3-5 days Please Follow Up With: Wood Hutson MD When: 1-2 weeks Please Follow Up With: Sydney Weston MD Patient Instructions: Cardiomyopathy, ED Atrial Flutter Disposition: Home Minutes spent on discharge:: 35 Patient Condition:: Stable Medical Necessity - Tobacco Use Smoking Status: Former smoker Tobacco Use: Non-smoker Meaningful Use Info Meaningful Use Diagnoses (Choose all that apply): None applicable Inpatient E&M: 14613 Disch Hosp
== END 2020-09-27 14:24 | disposition home or self-care (01) | DRG 286 ==
LOC: ED 14:44 → PCU 15:47
PROVIDERS: Internal Medicine; Internal Medicine Cardiovascular Disease; Admitting Provider Family Medicine; Emergency Provider Emergency Medicine; PCP Family Medicine; Visit Provider Family Medicine
DX: I48.0 Paroxysmal atrial fibrillation (principal); I50.21 Acute systolic (congestive) heart failure; R17 Unspecified jaundice; I48.92 Unspecified atrial flutter; I42.8 Other cardiomyopathies; I34.0 Nonrheumatic mitral (valve) insufficiency; B33.24 Viral cardiomyopathy; R03.0 Elevated blood-pressure reading, without diagnosis of hypertension; N18.31 Chronic kidney disease, stage 3a; I25.10 Atherosclerotic heart disease of native coronary artery without angina pectoris; Z87.891 Personal history of nicotine dependence; Z86.19 Personal history of other infectious and parasitic diseases
CPT/HCPCS: 36415; 71045; 71275; 74019; 76705; 80048; 80053; 80061; 82728; 83615; 83735; 83880; 84145; 84439; 84443; 84484; 85025; 85379; 85610; 85730; 86140; 87426; 87449; 87633; 87635; 93005; 93306; 93454; 97162; 97165; 97802; 99152; 99153; 99251; 99285; J7030; J7040; J7120; Q9967; A4216; C1769; C1894; G0463; J1940; J2405; U0002

== ENCOUNTER → 2020-10-05 14:21 | Outpatient (CLI) | payer OTHER, SELFPAY ==
[2020-09-23 20:07] VITALS: BMI 31.4
[2020-10-05 18:41] LABS: AST(SGOT) 30 U/L (15-37); Alanine Aminotransfer ALT/SGPT 68 U/L (16-61); Albumin, Serum 3.6 g/dL (3.2-5.0); Alkaline Phosphatase 87 U/L (45-117); Bilirubin, Direct 0.21 mg/dL (0.00-0.30); Protein, Total 7.6 g/dL (6.4-8.2)
== END ==
PROVIDERS: PCP Family Medicine; Referring Provider Family Medicine; Visit Provider Family Medicine
DX: Z01.812 Encounter for preprocedural laboratory examination (principal); R79.89 Other specified abnormal findings of blood chemistry; Z20.822 Contact with and (suspected) exposure to COVID-19
CPT/HCPCS: 36415; 80076; 86769; 87635; U0002

== ENCOUNTER 2020-10-10 09:01 | Outpatient (CLI) | payer OTHER, SELFPAY ==
[2020-09-23 20:07] VITALS: BMI 31.4
[2020-10-07 09:13] VITALS: BMI 29.8
--- NOTE | 2020-10-10 09:08 | ECHOTEE_ITS ---
Reason For Study: Afib/Flutter Medication JT probe 6VT-D (SN [id number]) passed with minimal difficulty. No complications were noted. Cetacaine Topical Magnolia given X3 orally. Versed 2 mg given slow IVP. Fentanyl 50 mcg given slow IVP. Performed a rapid injection of agitated mix of 9 cc saline and 1cc air to assess for atrial septal defect. Left Ventricle Normal LV size. The estimated ejection fraction is 30 %. Moderately severe global left ventricular systolic dysfunction. No regional wall motion abnormalities noted. Right Ventricle Normal RV size. Normal systolic function. Atria Intact atrial septum. Normal left atrium. No thrombus is detected in the left atrial appendage. Normal right atrium. Mitral Valve Normal mitral valve. Mild (1+) eccentric mitral valve insufficiency. Tricuspid Valve Normal tricuspid valve. Mild tricuspid valve insufficiency. Aortic Valve Normal aortic valve. Trisinus/trileaflet aortic valve. Pulmonic Valve Normal pulmonic valve. Vessels Normal aortic root. Pericardium No pericardial effusion. ECHO/Echo Transesophageal (JT) Interpretation Summary Normal LV size. The estimated ejection fraction is 30 %. Moderately severe global left ventricular systolic dysfunction. Ordering Physician: Wood Hutson Referring Physician: Sydney Weston M.D. Performed By: Honorio Vyas RCS
--- NOTE | 2020-10-10 12:50 | CARDIOVERS ---
Cardioversion Cardioversion: DC cardioversion. 60-year-old man with a history of atrial fibrillation and cardiomyopathy. The patient underwent a transesophageal echocardiogram today which demonstrated no evidence of left atrial appendage thrombus. The ejection fraction was confirmed to be approximately 35%. The patient was brought to the noninvasive lab. Patient was seen by Dr. Boykin of the critical care division. After informed consent was obtained anterior posterior pads were applied. 6 mg of intravenous etomidate was then administered and 200 J of synchronized biphasic DC cardioversion energy was applied with prompt reversal to sinus rhythm. Patient tolerated the procedure well. Conclusion: Successful DC cardioversion to sinus rhythm. Continue current medications. Reduce amiodarone to 200 mg once a day. Repeat echocardiogram in 2 months to assess ventricular function and reassess medications.
--- NOTE | 2020-10-10 13:12 | PRO.PCM_ITS ---
Problem List (1) Acute HFrEF (heart failure with reduced ejection fraction) Status: Acute (2) Atrial flutter Status: Acute (3) Non-ischemic cardiomyopathy Status: Acute (4) Nonrheumatic mitral (valve) insufficiency Status: Acute (5) Chronic kidney disease (CKD) Status: Chronic (6) Persistent atrial fibrillation Status: Chronic Procedure Report Date of Procedure: 10/10/20 - Conscious sedation CONSCIOUS SEDATION REPORT BRIEF HISTORY OF PRESENT ILLNESS: The patient is a 60-year-old male who presented to [facility] for an elective outpatient cardioversion due to underlying atrial fibrillation. The patient reports no PO intake since midnight. The patient does not have a history of obstructive sleep apnea. The patient reports a history of smoking, but denies COPD. The patient denies any recent constitutional symptoms such as fevers, chills, nausea or vomiting. The patient denies previous anesthetic complications. Patient did have a JT just prior to this procedure that showed no clots. Patient's EF at that time was 20 to 25%. PHYSICAL EXAMINATION: VITAL SIGNS: Reviewed and were acceptable. GENERAL: The patient is a male, in no apparent distress, speaking in full sentences. HEENT: Normocephalic, atraumatic. Mucous membranes are moist and pink. Good mouth opening noted. Trachea is midline. Good neck mobility. MP II CHEST: S1, S2 irregularly irregular. No murmurs, rubs or gallops were noted. LUNGS: Clear to auscultation bilaterally without appreciable wheezes, rales or rhonchi. ABDOMEN: Soft, nontender, nondistended. Positive bowel sounds. EXTREMITIES: There is no clubbing, cyanosis or edema. ASA Class: II DESCRIPTION OF PROCEDURE: After confirmation of informed consent, the patient's anesthesia plan was reviewed in detail. Etomidate was chosen. Risks and benefits were reviewed and the patient agreed to proceed. At 12:19 PM, the patient was given 4 mg of etomidate. The patient required a total of 6 mg of etomidate throughout the procedure to achieve appropriate sedation. The patient achieved an appropriate level of sedation and received 1 attempt synchronized cardioversion, at [address] Hutson at the bedside. This was successful in achieving normal sinus rhythm. The patient was monitored until really 12:32 PM, at which time the patient reached their baseline mental status and function. The patient tolerated the procedure well. COMPLICATIONS: None ESTIMATED BLOOD LOSS: None RECOMMENDATIONS: Okay to recover in usual fashion. [id number]: Other Procedure See Report - [id number]
== END 2020-10-10 13:30 | disposition home or self-care (01) ==
PROVIDERS: PCP Family Medicine; Referring Provider Internal Medicine Cardiovascular Disease; Visit Provider Internal Medicine Cardiovascular Disease
DX: I48.91 Unspecified atrial fibrillation (principal); I48.92 Unspecified atrial flutter; I42.8 Other cardiomyopathies; I50.21 Acute systolic (congestive) heart failure; I25.10 Atherosclerotic heart disease of native coronary artery without angina pectoris; I34.0 Nonrheumatic mitral (valve) insufficiency; R79.89 Other specified abnormal findings of blood chemistry; N18.9 Chronic kidney disease, unspecified
CPT/HCPCS: 92960; 93005; 93312; 93320; 93325; J7040; A4216

== ENCOUNTER → 2020-12-09 10:53 | Outpatient (CLI) | payer OTHER, SELFPAY ==
[2020-10-07 09:13] VITALS: BMI 29.8
--- NOTE | 2020-12-09 11:22 | ECHOD_ITS ---
Version 2 Reason For Study: CMP Procedure This was a 2D Doppler, Color Flow transthoracic echocardiogram. Exam performed in department. Left Ventricle Normal LV size. Left ventricular systolic function is normal. The estimated ejection fraction is 65 %. Stage 1 diastolic dysfunction. No regional wall motion abnormalities noted. Right Ventricle Normal RV size. Normal systolic function. Atria Normal left atrium. Normal right atrium. Mitral Valve Normal mitral valve. Tricuspid Valve Normal tricuspid valve. Trivial tricuspid valve insufficiency. Aortic Valve Normal aortic valve. Trisinus/trileaflet aortic valve. Pulmonic Valve The pulmonic valve is not well visualized. Great Vessels Normal aortic root. The pulmonary artery is normal size. Normal inferior vena cava. Pericardium/Pleural No pericardial effusion. MMode/2D Measurements & Calculations LVIDd: 4.7 cm IVSd: 1.1 cm LA dimension: 3.8 cm LVIDs: 3.5 cm LVPWd: 1.1 cm FS: 25.8 % LAV(MOD-bp): 46.2 ml LA A4 area: 17.9 cm2 RA A4 area: 16.4 cm2 LAV(MOD-bp) Indexed: 19.8 ml/m2 LAV(MOD-sp2): 39.0 ml LAV(MOD-sp4): 43.7 ml Time Measurements MV dec time: 0.50 sec Doppler Measurements & Calculations MV E max ranulfo: 45.3 cm/sec Lat Peak E' Ranulfo: 5.8 cm/sec Med Peak E' Ranulfo: 7.2 cm/sec MV A max ranulfo: 63.1 cm/sec E/E' lat: 7.8 E/E' med: 6.3 MV E/A: 0.72 MV V2 max: 69.0 cm/sec MV P1/2t max ranulfo: 48.7 cm/sec Ao V2 max: 96.4 cm/sec MV max P.9 mmHg MV P1/2t: 201.9 msec Ao max P.7 mmHg MV V2 mean: 35.1 cm/sec MV dec slope: 70.6 cm/sec2 MV mean P.56 mmHg MVA(P1/2t): 1.1 cm2 MV V2 VTI: 29.3 cm LV V1 max: 84.8 cm/sec PA V2 max: 72.8 cm/sec TR max ranulfo: 218.0 cm/sec LV V1 max P.9 mmHg TR max P.0 mmHg ECHO/Echo Complete Interpretation Summary Normal LV size. Left ventricular systolic function is normal. The estimated ejection fraction is 65 %. Stage 1 diastolic dysfunction. Structurally normal valves. Compared to previous study, the left ventricular sy stolic function has improved.. Ordering Physician: Wood Hutson Referring Physician: Sydney Weston M.D. Performed By: Honorio Vyas RCS
== END ==
PROVIDERS: PCP Family Medicine; Referring Provider Internal Medicine Cardiovascular Disease; Visit Provider Internal Medicine Cardiovascular Disease
DX: I48.19 Other persistent atrial fibrillation (principal); I48.92 Unspecified atrial flutter; I42.8 Other cardiomyopathies; I50.21 Acute systolic (congestive) heart failure; I25.10 Atherosclerotic heart disease of native coronary artery without angina pectoris; I34.0 Nonrheumatic mitral (valve) insufficiency; R79.89 Other specified abnormal findings of blood chemistry; N18.9 Chronic kidney disease, unspecified
CPT/HCPCS: 93306

== ENCOUNTER → 2021-03-28 10:58 | Outpatient (CLI) | payer OTHER, SELFPAY | PROVIDERS: PCP Family Medicine; Visit Provider Internal Medicine Cardiovascular Disease | DX: Z01.812 Encounter for preprocedural laboratory examination (principal) | CPT/HCPCS: 87635; C9803; U0005; U0003 ==

== ENCOUNTER 2021-05-06 21:34 | Emergency (ER) | payer OTHER, SELFPAY ==
[2021-05-06 21:35] VITALS: BP 184/108; PULSE 50; RESP 18; TEMP 36.6; O2SAT 100; BMI 28.5
[2021-05-06 21:58] VITALS: BP 174/105; PULSE 49; RESP 16; O2SAT 99
--- NOTE | 2021-05-06 22:03 | ED.VIS.BACK ---
HPI History of Present Illness Chief Complaint: Back Informant: patient Onset/Context/Timing Onset: Days (Onset earlier this week.) Context: Gradual Onset Injury: - (No specific injury. Movement does make it worse) Timing: Continuous Quality: Dull and Aching Location: Lumbar (L2-3 region) Current Severity: Mild Maximum Severity: Severe Worsened by: improves with Movement, Bending and Lifting Relieved by: Nothing Associated Symptoms Associated Symptoms: - (Patient is on anticoagulant. There is no history of trauma.); Negative for Numbness, Tingling, Radiation to Right Leg, Radiation to Left Leg, Fever, Abdominal Pain, Dysuria, Unable to Ambulate, Unable to Transfer, Urinary Retention, Urinary Incontinence, Constipation and Fecal Incontinence Narrative Narrative: Patient is a middle-age male with history of atrial fibrillation with decreased ejection fraction, nonischemic cardiomyopathy, on long-term anticoagulant. He does have a history of chronic kidney disease. He presents with atraumatic back pain that he localizes over L2-L3. Movement makes it worse. There is no history of trauma. He denies radicular pain. Denies bowel bladder dysfunction. Denies saddle paresthesia or anesthesia. He denies foot drop. He denies buckling of his knees going up or down steps. He has no other symptoms. There is been no recent dental procedure. He is not on any immunosuppressive meds. Prior similar symptoms: No Recent Illness/Hospitalization: No [facility] Medical History Acute HFrEF (heart failure with reduced ejection fraction) (09/23/20) Acute renal insufficiency Atrial fibrillation with rapid ventricular response (09/23/20) Atrial flutter Chronic kidney disease (CKD) Elevated BP without diagnosis of hypertension Elevated LFTs Non-ischemic cardiomyopathy Nonobstructive atherosclerosis of coronary artery Nonrheumatic mitral (valve) insufficiency Persistent atrial fibrillation Pneumonia Sepsis Thrombus of left atrial appendage (04/05/21) Home Medications trazodone 50 mg PO QHS 09/23/20 [History Last Taken 09/21/20] metoprolol succinate 100 mg tablet,extended release 24 hr 100 mg PO DAILY #30 tablet 10/27/20 [Rx Last Taken Unknown] apixaban 5 mg tablet 5 mg PO BID #90 tab 04/04/21 [Rx Last Taken Unknown] aspirin 81 mg tablet,delayed release 81 mg PO DAILY 04/05/21 [History Last Taken Unknown] oxycodone-acetaminophen 1 tab PO Q6H PRN PRN 5 Days #20 tablet 05/06/21 [Rx Last Taken Unknown] Allergy/AdvReac Type Severity Reaction Status Date / Time azithromycin AdvReac palpitations/stomach Verified 05/06/21 21:34 [From Zithromax Z-Benigno] bloating Family History Mother Hypertension Father Hypertension Surgical History History of cardioversion (10/10/20) History of left heart catheterization (09/26/20) History of transesophageal echocardiography (JT) (10/10/20) Social History (Updated 05/06/21 @ 22:[address] Gus Richardson MD) household members: spouse Smoking Status: Former smoker alcohol intake: current alcohol intake frequency: other substance use type: does not use ROS ROS ED Constitutional Constitutional ED: Denies chills, fever(s), subjective or sweats Eyes Eyes: Denies blurry vision or change in vision ENT ENT ED: Denies rhinorrhea or sore throat Cardiovascular Cardiovascular: Denies chest pain, orthopnea, palpitations or racing heartbeat Respiratory/Chest Respiratory/Chest: Denies dyspnea, orthopnea or sputum Gastrointestinal Gastrointestinal: Denies abdominal pain, diarrhea, melena, nausea or vomiting Genitourinary Genitourinary ED: Denies dysuria, hematuria or urinary frequency Musculoskeletal Musculoskeletal: Denies arthralgias or myalgias Integumentary Denies abscess or rash Neurologic Neurologic: Denies headache(s), paresthesias or weakness Hematologic/Lymphatic Hematologic/Lymphatic: Denies easy bleeding or easy bruising EXAM Physical Exam Const Vital Signs: 05/06/21 21:35 05/06/21 21:58 Temperature 98 F Temperature Source Temporal Pulse Rate 50 L 49 L Respiratory Rate 18 16 Blood Pressure 184/108 H 174/105 H Blood Pressure Mean 133 128 Pulse Ox 100 99 Oxygen Delivery Method Room Air Room Air Positive well nourished and well developed General Appearance ED: well developed and NAD; Negative for pallor HEENT HEENT Narrative: Head is atraumatic normocephalic. Ears normal. Nares patent. Eyes PERRL and EOMs intact bilaterally General Eye ED: Negative for pale conjunctiva or scleral icterus Neck no lymphadenopathy, supple and no JVD Resp normal respiratory effort and clear to auscultation bilaterally Cardio regular rhythm and no murmurs Rhythm: abnormal rhythm GI normal to inspection, nondistended, normoactive bowel sounds, soft to palpation and non-tender Back/Spine normal to inspection and no thoracic nor lumbar tenderness General Back: Negative for CVA tenderness Cervical Spine: Negative for paracervical muscle tenderness Extremity normal to inspection General Extremety ED: Negative for edema or tenderness General Extremity: Negative for edema Neuro oriented x3 and no sensory deficits noted Neuro Narrative: EHL intact. Normal sensation over L3, L4 and L5. 5/5 strength plantar dorsiflexion of the foot. Hip flexors 5/5 strength. Straight leg test is negative. Normal perianal sensation. Sensorium / Orientation: alert Deep Tendon Reflexes: Rt Patellar (L4): 2+, Lt Patellar (L4): 2+, Rt Ankle (S1): 2+ and Lt Ankle (S1): 2+ Deep Tendon Reflexes Back: Rt Patellar (L4): 2+, Lt Patellar (L4): 2+, Rt Ankle (S1): 2+ and Lt Ankle (S1): 2+ Plantar Reflex: Downgoing: left Psych mental status grossly normal Skin no rashes or lesions noted and no wounds General Skin Exam: Negative for jaundice or pallor MDM MDM MDM Narrative Medical decision making narrative: History and physical is consistent with muscular low low back pain. asked why imaging was not obtained. Patient was informed as well as his that he does not meet criteria for imaging and specifically MRI. His history and physical is consistent with low back strain. Since he is on long-term anticoagulant for A. fib he was treated with IV morphine. Plan is to discharge with opiate analgesia since NSAIDs are contraindicated. Patient was reassessed at 2240. He feels markedly improved. Plan is to discharge with prescription for Percocet. He cannot take NSAIDs because he is on long-term anticoagulation therapy. Discharge Plan Triage Chief Complaint: Back ED Provider: Gus Richardson Dx/Rx/DC Orders Clinical Impression: Low back pain Instructions: ED Back Pain (Acute or Chronic) Prescriptions: New oxycodone-acetaminophen [oxycodone-acetaminophen] 1 TABLET tablet 1 tab PO Q6H PRN PRN (Reason: pain) 5 Days Qty: 20 RF: 0 No Action trazodone 50 MG tablet 50 mg PO QHS RF: 0 metoprolol succinate 100 mg tablet extended release 24 hr 100 mg PO DAILY Qty: 30 RF: 11 apixaban 5 mg tablet 5 mg PO BID Qty: 90 RF: 3 Hold Instructions: Rectal Bleeding aspirin [Adult Aspirin Regimen] 81 mg tablet,delayed release (DR/EC) 81 mg PO DAILY RF: 0 Primary Care Provider: Sydney Weston Referrals: Sydney Weston MD [Primary Care Provider] - 3-5 Days if not improving Disposition Disposition: Home, Self Care
[2021-05-06] MEDS: morphine 8 MG/ML Syringe IV (22:29)
[2021-05-06] MEDS: Ondansetron 4 MG/2 ML Vial IV (22:29)
[2021-05-06 23:06] VITALS: BP 155/93; PULSE 74; RESP 98
== END 2021-05-06 23:10 | disposition home or self-care (01) ==
PROVIDERS: Emergency Provider Emergency Medicine; PCP Family Medicine
DX: M54.50 Low back pain, unspecified (principal); I34.0 Nonrheumatic mitral (valve) insufficiency; I48.91 Unspecified atrial fibrillation; I48.92 Unspecified atrial flutter; I42.8 Other cardiomyopathies; I50.22 Chronic systolic (congestive) heart failure; I25.10 Atherosclerotic heart disease of native coronary artery without angina pectoris; N18.9 Chronic kidney disease, unspecified; Z86.19 Personal history of other infectious and parasitic diseases; Z87.01 Personal history of pneumonia (recurrent); Z79.01 Long term (current) use of anticoagulants; Z79.82 Long term (current) use of aspirin; Z79.899 Other long term (current) drug therapy; Z87.891 Personal history of nicotine dependence
CPT/HCPCS: 96374; 96375; 99283; A4216; J2405

== ENCOUNTER → 2021-07-04 | Outpatient (CLI) | payer OTHER, SELFPAY | END | disposition home or self-care (01) | LOC: LABSPEC 16:09 | PROVIDERS: PCP Family Medicine; Referring Provider Family Medicine; Visit Provider Family Medicine | DX: U07.1 COVID-19 (principal); J06.9 Acute upper respiratory infection, unspecified | CPT/HCPCS: 87635; U0005; U0003 ==

== ENCOUNTER 2021-07-06 16:02 | Outpatient (CLI) | payer OTHER, SELFPAY ==
[2021-07-06 16:11] VITALS: BP 167/100; PULSE 50; RESP 16; TEMP 36.8; O2SAT 100; BMI 28.0
[2021-07-06] MEDS: 0.9% Saline Lock 10 ML Syringe IV (16:18)
[2021-07-06 17:17] VITALS: BP 131/93; PULSE 50; RESP 16; TEMP 36.6; O2SAT 99
[2021-07-06 18:07] VITALS: BP 130/78; PULSE 48; RESP 16; TEMP 36.5; O2SAT 100
== END 2021-07-06 18:16 | disposition home or self-care (01) ==
LOC: MS3OUT 16:02 → MS3 16:05
PROVIDERS: PCP Family Medicine; Referring Provider Nurse Practitioner Acute Care; Visit Provider Nurse Practitioner Acute Care
DX: Z23 Encounter for immunization (principal); U07.1 COVID-19
CPT/HCPCS: J7050; M0245; Q0245; A4216

== ENCOUNTER 2021-09-01 10:47 | Outpatient (CLI) | payer OTHER, SELFPAY | END 2021-09-01 23:59 | disposition home or self-care (01) | LOC: PSN 10:49 | PROVIDERS: PCP Family Medicine; Referring Provider Pediatrics; Visit Provider Pediatrics | DX: Z01.818 Encounter for other preprocedural examination (principal); Z20.822 Contact with and (suspected) exposure to COVID-19 | CPT/HCPCS: 87426; C9803 ==

== ENCOUNTER → 2021-09-05 09:30 | Outpatient (CLI) | payer OTHER, SELFPAY | PROVIDERS: PCP Family Medicine | DX: Z01.818 Encounter for other preprocedural examination (principal); Z20.822 Contact with and (suspected) exposure to COVID-19 | CPT/HCPCS: 87635; U0003; U0005 ==

== ENCOUNTER → 2021-12-25 | Outpatient (CLI) | payer OTHER, SELFPAY ==
[2021-12-25 15:52] LABS: Anion Gap 5 (5-15); BUN 17 mg/dL (7-18); BUN/Creat Ratio 12.3 RATIO (10-20); Calcium,Total 9.1 mg/dL (8.5-10.1); Chloride 108 mmol/L (98-107); Creatinine, Serum 1.38 mg/dL (0.70-1.30); EST Glomerular Filtration Rate 56 mL/min (>60); Est Glom Filt Rate - Afr Amer 68 mL/min (>60); Glucose 96 mg/dL (74-106); Potassium 4.3 mmol/L (3.5-5.1); Sodium Level 140 mmol/L (136-145)
== END | disposition home or self-care (01) ==
LOC: MFPLAB 11:22
PROVIDERS: PCP Family Medicine
DX: I10 Essential (primary) hypertension (principal)
CPT/HCPCS: 36415; 80048

== ENCOUNTER → 2023-09-04 | Outpatient (CLI) | payer OTHER, SELFPAY ==
[2023-09-04 15:09] LABS: Hematocrit 46.9 % (40-54); Hemoglobin 16.3 g/dL (13.0-16.5)
[2023-09-04 15:54] LABS: Anion Gap 4 (5-15); BUN 20 mg/dL (7-18); BUN/Creat Ratio 15.9 RATIO (10-20); Calcium,Total 9.5 mg/dL (8.5-10.1); Chloride 106 mmol/L (98-107); Creatinine, Serum 1.26 mg/dL (0.70-1.30); EST Glomerular Filtration Rate 62 mL/min (>60); Est Glom Filt Rate - Afr Amer 75 mL/min (>60); Glucose 81 mg/dL (74-106); Magnesium 2.1 mg/dL (1.6-2.6); Potassium 4.4 mmol/L (3.5-5.1); Sodium Level 138 mmol/L (136-145)
== END | disposition home or self-care (01) ==
LOC: MFPLAB 12:08
PROVIDERS: PCP Family Medicine; Visit Provider Family Medicine
DX: I10 Essential (primary) hypertension (principal)
CPT/HCPCS: 36415; 80048; 83735; 85014; 85018